=== PATIENT | female | born 1995 | race Caucasian/White ===

== ENCOUNTER → 2019-04-25 16:03 | Outpatient (CLI) | payer BC, OTHER, SELFPAY ==
[2019-04-11 14:59] VITALS: BMI 20.5
[2019-04-25 17:17] LABS: Estradiol 34.7 pg/mL; Follicle Stimulating Hormone 5.4 mIU/mL; Thyroid Stim Hormone (TSH) 3.22 uIU/mL (0.358-3.74)
== END ==
PROVIDERS: PCP Family Medicine; Referring Provider Obstetrics & Gynecology; Visit Provider Obstetrics & Gynecology
DX: Z31.9 Encounter for procreative management, unspecified (principal)
CPT/HCPCS: 36415; 82670; 83001; 84443

== ENCOUNTER → 2019-05-02 14:32 | Outpatient (CLI) | payer BC, OTHER, SELFPAY ==
[2019-04-11 14:59] VITALS: BMI 20.5
--- NOTE | 2019-05-02 14:32 | US_ITS ---
STUDY: ULTRASOUND OF THE FEMALE PELVIS - COMPLETE REASON FOR EXAM: Female, 23 years old. Infertility. LMP: April 23, 2019. TECHNIQUE: Transabdominal and Transvaginal TECHNICAL QUALITY: Adequate. COMPARISON: None. FINDINGS: The anteverted midline uterus measures 6.9 x 4.9 x 3.1 cm. There are no myometrial masses. Endometrium measures 3 mm in thickness and is hyperechoic. There are no endometrial masses, and there is no fluid in the endometrial cavity. Normal uterine cervix. Normal right ovary, measuring 4.3 x 2.4 x 3.0 cm. There are multiple follicles without a dominant cyst. Normal vascularity on Doppler imaging. Normal left ovary, measuring 2.5 x 3.0 x 1.2 cm. There are multiple follicles without a dominant cyst. Normal vascularity on Doppler imaging. There is no free fluid in the pelvis. Polycystic ovary disease: No. US/Pelvic (Non ) IMPRESSION: Normal female pelvis. Electronically Signed: Saúl Phillip DO at 17:18 EST Tel [phone], Service support ,
--- NOTE | 2019-05-02 14:32 | US_ITS ---
STUDY: ULTRASOUND OF THE FEMALE PELVIS - COMPLETE REASON FOR EXAM: Female, 23 years old. Infertility. LMP: April 23, 2019. TECHNIQUE: Transabdominal and Transvaginal TECHNICAL QUALITY: Adequate. COMPARISON: None. FINDINGS: The anteverted midline uterus measures 6.9 x 4.9 x 3.1 cm. There are no myometrial masses. Endometrium measures 3 mm in thickness and is hyperechoic. There are no endometrial masses, and there is no fluid in the endometrial cavity. Normal uterine cervix. Normal right ovary, measuring 4.3 x 2.4 x 3.0 cm. There are multiple follicles without a dominant cyst. Normal vascularity on Doppler imaging. Normal left ovary, measuring 2.5 x 3.0 x 1.2 cm. There are multiple follicles without a dominant cyst. Normal vascularity on Doppler imaging. There is no free fluid in the pelvis. Polycystic ovary disease: No. US/Transvaginal Non- IMPRESSION: Normal female pelvis. Electronically Signed: Saúl Phillip DO at 17:18 EST Tel [phone], Service support ,
== END ==
PROVIDERS: PCP Family Medicine; Referring Provider Obstetrics & Gynecology; Visit Provider Obstetrics & Gynecology
DX: N94.6 Dysmenorrhea, unspecified (principal); N97.9 Female infertility, unspecified
CPT/HCPCS: 76830; 76856

== ENCOUNTER → 2019-09-05 | Outpatient (CLI) | payer BC, OTHER, SELFPAY ==
[2019-09-05 13:54] VITALS: BMI 20.5
[2019-09-05 17:46] LABS: Amphetamine Urine VISTA NEGATIVE (<1000 ng/mL); Barbiturate Urine VISTA NEGATIVE (< 200 ng/mL); Benzodiazepine Urine VISTA NEGATIVE (< 200 ng/mL); Cocaine Urine VISTA NEGATIVE (< 300 ng/mL); Ecstacy Urine VISTA NEGATIVE (< 500 ng/mL); Methadone Urine VISTA NEGATIVE (< 300 ng/mL); PCP Urine VISTA NEGATIVE (< 25 ng/mL); THC Urine VISTA NEGATIVE (< 50 ng/mL); Vista UDS pH Range 6
[2019-09-05 20:06] LABS: Chlamydia Trachomatis by PCR Negative (Negative); Neisserai gonorrhoeae by PCR Negative (Negative); Probe Check PASS; Sample Adequacy Control PASS; Specimen Processing Control PASS
[2019-09-10 08:48] LABS: HPV Reflexed? NOT INDICATED
== END | disposition home or self-care (01) ==
PROVIDERS: PCP Family Medicine; Referring Provider Obstetrics & Gynecology; Visit Provider Obstetrics & Gynecology
DX: Z12.4 Encounter for screening for malignant neoplasm of cervix (principal); Z34.90 Encounter for supervision of normal pregnancy, unspecified, unspecified trimester
CPT/HCPCS: 80307; 87086; 87088; 87491; 87591; 88175; G0145

== ENCOUNTER → 2019-10-07 15:42 | Outpatient (CLI) | payer BC, OTHER, SELFPAY ==
[2019-10-07 14:53] VITALS: BMI 20.5
[2019-10-07 16:41] LABS: Absolute Lymphocyte Count 1.83 X10^3/uL (0.83-4.51); Absolute Neutrophil Count 7.7 X10^3/uL (2.0-7.7); Basophil# 0.02 X10^3/uL; Basophil% 0.2 % (0-1); Eosinophil# 0.12 X10^3/uL; Eosinophils% 1.1 % (0-5); Hematocrit 36.5 % (37-47); Hemoglobin 12.4 g/dL (12.0-15.0); Lymphocyte # 1.83 X10^3/ul (4.0); Lymphocyte % 17.5 % (19-41); Mean Corpuscular Hgb 31.4 pg (27.0-32.0); Mean Corpuscular Volume 92.4 fL (81-99); Mean Platelet Vol. 9.8 fl (6.2-12.0); Monocyte# 0.76 X10^3/uL; Monocyte% 7.3 % (0-10); NRBC Flagged by Analyzer 0 % (0-5); Neutrophil # 7.66 X10^3/uL (2.7-7.7); Neutrophil % 73.3 % (47-70); Platelet Count 297 K/mm3 (150-450); RBC Distribution Width CV 11.5 % (11.6-14.6); RBC Distribution Width SD 38.9 fl (35.1-43.9); Red Blood Count 3.95 M/mm3 (4.2-5.4); White Blood Count 10.5 K/mm3 (4.4-11.0)
[2019-10-10 11:04] LABS: HIV - WCH Non-Reactive (Nonreactive); Hepatitis B Surface Antigen Non-Reactive (Nonreactive); Hepatitis C Antibody Non-Reactive (Nonreactive); Rubella IgG 137.9 IU/mL
[2019-10-13 11:06] LABS: Rapid Plasmin Reagin (RPR) NONREACTIVE (NONREACTIVE)
== END ==
PROVIDERS: PCP Family Medicine; Referring Provider Obstetrics & Gynecology; Visit Provider Obstetrics & Gynecology
DX: Z34.90 Encounter for supervision of normal pregnancy, unspecified, unspecified trimester (principal)
CPT/HCPCS: 36415; 85025; 86592; 86703; 86762; 86803; 86850; 86900; 86901; 87340

== ENCOUNTER → 2019-12-30 15:17 | Outpatient (CLI) | payer BC, OTHER, SELFPAY ==
[2019-12-02 15:42] VITALS: BMI 20.5
[2019-12-30 17:27] LABS: Absolute Lymphocyte Count 1.54 X10^3/uL (0.83-4.51); Absolute Neutrophil Count 9.6 X10^3/uL (2.0-7.7); Basophil# 0.03 X10^3/uL; Basophil% 0.2 % (0-1); Eosinophil# 0.12 X10^3/uL; Hemoglobin 10.9 g/dL (12.0-15.0); Lymphocyte # 1.54 X10^3/ul (4.0); Lymphocyte % 12.4 % (19-41); Mean Corp Hgb Conc 32.1 g/dL (32-36); Mean Corpuscular Hgb 31.3 pg (27.0-32.0); Mean Corpuscular Volume 97.7 fL (81-99); Mean Platelet Vol. 9.8 fl (6.2-12.0); Monocyte# 1.12 X10^3/uL; NRBC Flagged by Analyzer 0 % (0-5); Platelet Count 275 K/mm3 (150-450); RBC Distribution Width CV 12.4 % (11.6-14.6); RBC Distribution Width SD 44.3 fl (35.1-43.9); Red Blood Count 3.48 M/mm3 (4.2-5.4); White Blood Count 12.5 K/mm3 (4.4-11.0)
[2019-12-30 18:13] LABS: Glucose Challenge Gest 1H 50g 69 mg/dL (70-140)
== END ==
PROVIDERS: PCP Family Medicine; Referring Provider Obstetrics & Gynecology; Visit Provider Obstetrics & Gynecology
DX: Z34.90 Encounter for supervision of normal pregnancy, unspecified, unspecified trimester (principal)
CPT/HCPCS: 36415; 82950; 85025

== ENCOUNTER → 2020-02-15 17:32 | Outpatient (CLI) | payer BC, OTHER, SELFPAY ==
[2020-02-10 15:45] VITALS: BMI 24.4
== END ==
PROVIDERS: PCP Family Medicine; Referring Provider Obstetrics & Gynecology; Visit Provider Obstetrics & Gynecology
DX: Z20.828 Contact with and (suspected) exposure to other viral communicable diseases (principal)
CPT/HCPCS: 87635; C9803; U0003

== ENCOUNTER → 2020-03-09 | Outpatient (CLI) | payer BC, OTHER, SELFPAY ==
[2020-03-09 15:57] VITALS: BMI 25.1
== END | disposition home or self-care (01) ==
LOC: LABSPEC 17:03
PROVIDERS: PCP Family Medicine; Referring Provider Obstetrics & Gynecology; Visit Provider Obstetrics & Gynecology
DX: Z34.90 Encounter for supervision of normal pregnancy, unspecified, unspecified trimester (principal)
CPT/HCPCS: 87077; 87081; 87186

== ENCOUNTER → 2020-03-16 13:44 | Outpatient (CLI) | payer BC, OTHER, SELFPAY ==
[2020-03-09 15:57] VITALS: BMI 25.1
--- NOTE | 2020-03-16 13:48 | US_ITS ---
STUDY: SECOND AND THIRD TRIMESTER OBSTETRICAL ULTRASOUND - LIMITED REASON FOR EXAM: Female, 24 years old GROWTH, UTERINE SIZE DATE DISCREPANCY LMP: PRIOR ULTRASOUND: None. TECHNIQUE: Transabdominal TECHNICAL QUALITY: Adequate. FINDINGS: There is a single intrauterine fetus. The fetus is in a cephalic presentation. There is demonstrated cardiac activity with a heart rate of 166 bpm. There is a normal amniotic fluid volume. The largest amniotic fluid pocket measures 2.55 cm. The amniotic fluid index (VNACE) is 9.45 cm. The placenta is anterior in location and is not low lying. There are Grade 2 placental changes. BIOMETRY: BPD: 8.7 cm: 35 weeks, 0 days HC: 31.5 cm: 35 weeks, 2 days AC: 30.8 cm: 34 weeks, 5 days FL: 7.25 cm: 37 weeks, 0 days Age by LMP: 37 weeks, 4 days. SORAYA by LMP: 04/02/2020. age by current US: 35 weeks, 2 days. SORAYA by current US: 04/18/2020. Estimated weight: 2725 grams, +/- 409 grams, 16 percentile. US/OB Limited With Biometrics IMPRESSION: Single live intrauterine gestation with a mean gestational age of 35 weeks and 2 days. Electronically Signed: Home Womack, at 15:22 EST , Service support ,
== END ==
PROVIDERS: PCP Family Medicine; Visit Provider Obstetrics & Gynecology
DX: O26.843 Uterine size-date discrepancy, third trimester (principal)
CPT/HCPCS: 76816

== ENCOUNTER 2020-03-26 15:50 | Outpatient (CLI) | payer BC, OTHER, SELFPAY ==
[2020-03-26] VITALS (7 sets, daily range): BP systolic 111–133; BP diastolic 73–84; PULSE 75–92; TEMP 37.2; O2SAT 98; BMI 25.5; BMI 25.6
--- NOTE | 2020-03-26 16:07 | EKG12_ITS ---
Test Reason : Blood Pressure : / mmHG Vent. Rate : 095 BPM Atrial Rate : 095 BPM P-R Int : 106 ms QRS Dur : 084 ms QT Int : 370 ms P-R-T Axes : 061 032 047 degrees QTc Int : 464 ms Sinus rhythm with short MN Otherwise normal ECG No previous ECGs available Confirmed by REID VALENTINO, ROSEANNE ([id number]), movie editor YARITZA RAZO ([id number]) on 04/02/2020 12:55:09 PM Referred By: Ivett Reid Confirmed By:STUART MATHEWS MD
[2020-03-26 16:30] LABS: Hematocrit 38.7 % (37-47); Hemoglobin 13.5 g/dL (12.0-15.0); Mean Corp Hgb Conc 34.9 g/dL (32-36); Mean Corpuscular Hgb 32.4 pg (27.0-32.0); Mean Corpuscular Volume 92.8 fL (81-99); Mean Platelet Vol. 9.9 fl (6.2-12.0); Platelet Count 312 K/mm3 (150-450); RBC Distribution Width SD 44.1 fl (35.1-43.9); Red Blood Count 4.17 M/mm3 (4.2-5.4); White Blood Count 13.9 K/mm3 (4.4-11.0)
[2020-03-26 16:38] LABS: AST(SGOT) 17 U/L (15-37); Alanine Aminotransfer ALT/SGPT 17 U/L (13-56); Creatinine, Serum 0.64 mg/dL (0.55-1.02); EST Glomerular Filtration Rate 122 mL/min (>60); Est Glom Filt Rate - Afr Amer 148 mL/min (>60); Uric Acid 3.7 mg/dL (2.6-6.0)
[2020-03-26] MEDS: Acetaminophen 500 MG Tablet 1000 MG PO (16:38)
[2020-03-26 16:39] LABS: Protein:Creat Ratio 132 mg/g CRE (0-200)
[2020-03-26 16:45] LABS: Partial Thromboplast Time 25.1 Seconds (24.1-36.2); Prothrombin Time (Protime)PT. 12.5 SECONDS (11.7-14.9)
--- NOTE | 2020-03-27 11:54 | OB.TRI.PN_ITS ---
Progress Notes Date of Service: 03/26/20 Progress Note: Patient presents for triage evaluation secondary to elevated blood pressure at home and chest tightness intermittent and history of SVT FHT: 130 Moderate variability reactive no decelerations category I tracing [place]: No regular contractions Assessment and plan: Normal blood pressures and negative preeclampsia evaluation transient hypertension of EKG within normal limits reactive NST, reassuring maternal and status patient discharged to home to follow-up as scheduled in office. See problem list details for additional plan information. Laboratory Studies: Laboratory Tests 03/26/20 03/26/20 03/26/20 Range/Units 16:10 16:10 16:10 WBC 13.9 H (4.4-11.0) K/mm3 RBC 4.17 L (4.2-5.4) M/mm3 Hgb 13.5 (12.0-15.0) g/dL Hct 38.7 (37-47) % MCV 92.8 (81-99) fL MCH 32.4 H (27.0-32.0) pg MCHC 34.9 (32-36) g/dL RDW Std Deviation 44.1 H (35.1-43.9) fl RDW Coeff of Kranthi 13.0 (11.6-14.6) % Plt Count 312 (150-450) K/mm3 MPV 9.9 (6.2-12.0) fl PT 12.5 (11.7-14.9) SECONDS INR 1.0 APTT 25.1 (24.1-36.2) Seconds Creatinine 0.64 (0.55-1.02) mg/dL Estim Creat Clear Calc 152.80 ml/min Est GFR (MDRD) Af Amer 148 (>60) mL/min Est GFR (MDRD) Non-Af 122 (>60) mL/min Uric Acid 3.7 (2.6-6.0) mg/dL AST 17 (15-37) U/L ALT 17 (13-56) U/L U Random Total Protein (<11.9) mg/dL Urine Creatinine (NO RANGE EST.) mg/dL Protein/Creatinin Ratio (0-200) mg/g CRE 03/26/20 Range/Units 16:00 WBC (4.4-11.0) K/mm3 RBC (4.2-5.4) M/mm3 Hgb (12.0-15.0) g/dL Hct (37-47) % MCV (81-99) fL MCH (27.0-32.0) pg MCHC (32-36) g/dL RDW Std Deviation (35.1-43.9) fl RDW Coeff of Kranthi (11.6-14.6) % Plt Count (150-450) K/mm3 MPV (6.2-12.0) fl PT (11.7-14.9) SECONDS INR APTT (24.1-36.2) Seconds Creatinine (0.55-1.02) mg/dL Estim Creat Clear Calc ml/min Est GFR (MDRD) Af Amer (>60) mL/min Est GFR (MDRD) Non-Af (>60) mL/min Uric Acid (2.6-6.0) mg/dL AST (15-37) U/L ALT (13-56) U/L U Random Total Protein 10.0 (<11.9) mg/dL Urine Creatinine 75.90 (NO RANGE EST.) mg/dL Protein/Creatinin Ratio 132 (0-200) mg/g CRE - Problem List (1) Transient hypertension of in third trimester Status: Acute Multi Select Codes - Urinary/Genital Urinary/Genital CPT Codes: 55111-91 non-stress test Interp
== END 2020-03-26 17:40 | disposition home or self-care (01) ==
LOC: WPOUT 15:58 → WP 15:58
PROVIDERS: PCP Family Medicine; Referring Provider Obstetrics & Gynecology; Visit Provider Obstetrics & Gynecology
DX: O26.893 Other specified pregnancy related conditions, third trimester (principal); R03.0 Elevated blood-pressure reading, without diagnosis of hypertension; R07.89 Other chest pain
CPT/HCPCS: 36415; 59025; 59050; 82565; 82570; 84156; 84450; 84460; 84550; 85027; 85610; 85730; 93005; 99218; G0378

== ENCOUNTER 2020-03-28 05:37 | Inpatient (IN) | payer BC, OTHER, SELFPAY ==
[2020-03-26 16:05] VITALS: BMI 25.6
[2020-03-28] VITALS (50 sets, daily range): BP systolic 92–137; BP diastolic 53–88; PULSE 75–114; RESP 16–18; TEMP 35.8–36.9; O2SAT 85–100; BMI 25.7
[2020-03-28] MEDS: Lactated Ringers 1,000 ML 200 ML IV ×2 (05:40→11:03)
[2020-03-28 06:02] LABS: Absolute Lymphocyte Count 1.92 X10^3/uL (0.83-4.51); Absolute Neutrophil Count 11.9 X10^3/uL (2.0-7.7); Basophil# 0.04 X10^3/uL; Basophil% 0.3 % (0-1); Eosinophil# 0.15 X10^3/uL; Hematocrit 38.1 % (37-47); Hemoglobin 13.1 g/dL (12.0-15.0); Lymphocyte # 1.92 X10^3/ul (4.0); Lymphocyte % 12.5 % (19-41); Mean Corp Hgb Conc 34.4 g/dL (32-36); Mean Corpuscular Hgb 31.7 pg (27.0-32.0); Mean Corpuscular Volume 92.3 fL (81-99); Mean Platelet Vol. 9.9 fl (6.2-12.0); Monocyte# 1.26 X10^3/uL; Monocyte% 8.2 % (0-10); NRBC Flagged by Analyzer 0 % (0-5); Neutrophil # 11.87 X10^3/uL (2.7-7.7); Neutrophil % 77.4 % (47-70); Platelet Count 293 K/mm3 (150-450); RBC Distribution Width CV 12.7 % (11.6-14.6); RBC Distribution Width SD 43.3 fl (35.1-43.9); Red Blood Count 4.13 M/mm3 (4.2-5.4); White Blood Count 15.3 K/mm3 (4.4-11.0)
[2020-03-28] MEDS: Lactated Ringers 500 ML 999 ML IV (06:10)
--- NOTE | 2020-03-28 06:34 | PCM.HPOB.BLA ---
- Problem List (1) Active labor at term Status: Acute (2) 37 weeks gestation of Status: Acute Comment: electronic covid test ordered 03/16/20 (scheduled for 03/30/20 at 1630) (3) Anemia affecting Status: Acute Qualifiers: Comment: iron added. (4) History of tetanus, diphtheria, and acellular pertussis booster vaccination (Tdap) Status: Acute Comment: 01/25/20 (5) Influenza vaccine administered Status: Acute Comment: 11/04/2019sc (6) Lab test negative for COVID-19 virus Status: Acute Comment: 02/20/2020 (7) Positive GBS test Status: Acute Comment: PCN in labor (8) Status: Acute Qualifiers: Comment: nipt, ntd, and carrier screening discussed. Normal anatomy (9) Supervision of normal Status: Acute Qualifiers: Comment: PRR SORAYA 04/02/20 Girl - Naz, Enzo (10) Transient hypertension of in third trimester Status: Acute History and Physical Date of Admission: 03/28/20 Intake Vital Signs 03/26/20 Height 5 ft 11 in 03/26/20 Weight: 183 lb 6 oz 03/26/20 BP 122/92 H Intake Visit Reasons: chest tightness/BP Custodian Blood Bank Required: No Is patient in pain?: No Allergies No Known Allergies Allergy (Verified 03/26/20 15:28) Medications ondansetron HCl 4 mg tablet 4 mg PO Q8H PRN #90 tab 08/22/19 [Rx Confirmed 03/26/20] multivitamin no.47-iron fum 27 mg-folate no.1 1 mg-dha 300 mg capsule cap PO 09/05/19 [History Confirmed 03/26/20] Last Menstral Period: 06/27/19 Zika: Zika virus screening: Negative : No PFSH PFSH Medical History SVT (supraventricular tachycardia) (Acute) Surgical History Hx of heart surgery (Acute) Family History Grandfather CVA (cerebral vascular accident) Hypertension Grandmother Diabetes Skin cancer Social History (Updated 03/26/20 @ 15:[address] 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 She has had an uncomplicated D&C and denies any vaginal bleeding or loss of fluid admits good movement. She is GBS positive. OB Visit SORAYA Calculator Estimated Delivery Date Method Current WG Current Estimate 04/02/20 LMP (Certain) 39w 0d Other Estimates 04/07/20 Ultrasound #1 38w 2d Expected Delivery Route/Plan Labor Preferences- labor support person: Enzo pain management options preferred: epidural cut cord/dad catch: no : pump and feed PP control planned: [] discussed possible routes of delivery and associated risks: discussed possible delivery modalities and possible indications for each including R/B/A of , VAVD, and CS. questions answered. special requests: [] Specific Issue/Plans flu vaccine: given tdap vaccine: given rhogam: na LARC form signed: yes movement and labor precautions reviewed. Problem list reviewed and updated with the most current plan of care details and appropriate orders placed. Relevant counseling for the gestational age provided. Continue routine care and follow up unless otherwise noted in visit notes/problem list details Initial Weight: 151 lb Date EGA Weight BP Urine Prot Glucose FHR FuHt Pres Dilation Effaced St Visit Note 09/05/19 10w 0d 151 lb 8 oz (+8 oz) 106/60 175 CRL 2.2 cm cons with LMP 9w2d 10/07/19 14w 4d 151 lb 6 oz (+6 oz) 120/76 Negative Negative 160 SM- no vb cramping doing well nausea improved nob labs drawn today 11/04/19 18w 4d 155 lb (+4 lb) 122/78 Negative Negative 150 SM- no vb cramping schedule anatomy scan. 12/02/19 22w 4d 160 lb 4 oz (+9 lb 4 oz) 120/70 Negative Negative 150 GP -no LOF, VB, cramping. +FM. Reports anatomy normal, but awaiting results. 12/30/19 26w 4d 167 lb (+16 lb) 110/76 Negative Negative 140 26 SM- no vb lof good fm no regular ctx cbc gct tdap 01/25/20 30w 2d 169 lb 8 oz (+18 lb 8 oz) 110/70 Negative Negative 156 29 MH-No Vb, LOF. Good FM. Larc, tdap 02/10/20 32w 4d 175 lb 4 oz (+24 lb 4 oz) 130/82 Negative Negative 150 32 GP - no LOF, VB, DFM, ctx. Denies complaints. 02/22/20 34w 2d 178 lb (+27 lb) 100/72 Negative Negative 140 34 Sm- no vb lof good fm no regular ctx. 03/09/20 36w 4d 180 lb (+29 lb) 110/82 Negative Negative 145 34 Cephalic 0.5 SM- no vb lof good fm no regular ctx get growth us for fh not consistent 03/16/20 37w 4d 184 lb (+33 lb) 130/88 Negative Negative 140 37 Cephalic Sm- no vb lof good fm no regular ctx 03/23/20 38w 4d 185 lb 4 oz (+34 lb 4 oz) 114/82 Negative Negative 140 38 Cephalic 2 70 -2 GP - no LOF, VB, DFM, ctx. Membranes swept today. 03/26/20 39w 0d 183 lb 6 oz (+32 lb 6 oz) 122/92 Negative Negative 140 GP - no LOF, VB, DFM, ctx. Having chest tightness and headache. BP mild range at work and in office. Sent to triage for BP monitoring, labs, and EKG. ACOG First Trimester First Trimester: Discussed Second Trimester Second Trimester: Signs and Symptoms of Labor, Selecting a care provider, Reproductive Life Planning, Care Planning, Depression/Anxiety and Intimate Partner Violence; discussed Tobacco Cessation Diagnostics Diagnostics Diagnostics Blood Type O POSITIVE 10/07/19 Antibody Screen NEGATIVE 10/07/19 Glucose 1 Hr 50 gm 69 mg/dL (70-140) L 12/30/19 HIV 1&2 Antibody Non-Reactive (Nonreactive) 10/07/19 Rubella IgG Antibody 137.9 IU/mL 10/07/19 Hgb 10.9 g/dL (12.0-15.0) L 12/30/19 Hct 34.0 % (37-47) L 12/30/19 RPR NONREACTIVE (NONREACTIVE) 10/07/19 Details: HIV: Urine Culture: Sequential Screen: NIPT Screen: ROS Const Reports system reviewed and no additional complaints, except as docu, Reports headache(s) Eyes Reports system reviewed and no additional complaints, except as docu ENT Reports system reviewed and no additional complaints, except as docu and headache(s) Card Reports system reviewed and no additional complaints, except as docu, Reports chest pain, Reports shortness of breath Resp Reports system reviewed and no additional complaints, except as docu, Reports shortness of breath GI Reports system reviewed and no additional complaints, except as docu Reports system reviewed and no additional complaints, except as docu, Denies abnormal vaginal bleeding, Denies painful urination, Denies pelvic pain, Denies vaginal discharge, Denies vaginal odor, Denies vaginal itching Musc Reports system reviewed and no additional complaints, except as docu Skin/Breast Reports system reviewed and no additional complaints, except as docu Neuro Yes system reviewed and no additional complaints, except as docu, Yes headache(s) Psych Reports system reviewed and no additional complaints, except as docu Endo Reports system reviewed and no additional complaints, except as docu Exam Const General: cooperative, healthy appearing, comfortable, no acute distress, well developed, well groomed Nutritional Appearance: average body habitus, well nourished Orientation: alert, awake, oriented x3 [facility] Head: normal to inspection, normocephalic, atraumatic Eyes Pupils: PERRL, accommodation normal Resp Effort & Inspection: normal respiratory effort, able to speak in complete sentences, symmetric chest movement Cardio Rate: regular rate GI Palpation: soft, no guarding, no masses, nontender Skin General: no rashes or lesions noted, elasticity normal, turgor normal Neuro General: alert, awake, oriented x3 Cranial Nerves: CN's II-XI intact bilaterally, sense of smell intact, PERRL, accommodation normal, EOM intact bilaterally Speech: speech normal Gait: normal gait Psych Appearance: grossly normal, well kempt Mental Status: mental status grossly normal Mood: congruent mood Affect: normal affect Speech and Movement: speech and movement normal Attitude: cooperative Thought Process: normal Thought Content: normal Judgment: judgment good Results POC Urinalysis 2 Dip (Clinic) Office Urine Glucose Negative Last Edit by Destiny Jensen on 03/26/20 15:41 Office Urine Protein Negative Last Edit by Destiny Jensen on 03/26/20 15:41 Assessment & Plan Problems 1. 37 weeks gestation of Z3A.37 electronic covid test ordered 03/16/20 (scheduled for 03/30/20 at 1630) 2. Positive GBS test B95.1 PCN in labor 3. Lab test negative for COVID-19 virus Z03.818 02/20/2020 4. History of tetanus, diphtheria, and acellular pertussis booster vaccination (Tdap) Z92.29 01/25/20 5. Anemia affecting O99.019 iron added. 6. Influenza vaccine administered Z23 11/04/2019sc 7. Encounter for supervision of normal first in third trimester Z34.03 PRR SORAYA 04/02/20 Girl - Naz, Enzo 8. 39 weeks gestation of Z3A.39 nipt, ntd, and carrier screening discussed. Normal anatomy Orders Orders: POC Urinalysis 2 Dip (Clinic) Today Protein+Creatinine Ratio,Urine Today O16.3 24-year-old G1, P0 at 39 weeks presents in active labor 5 cm dilated Patient presents IAL, plan expectant management for , [pitocin/AROM if needed]. Pain management: [plans epidural]. GBS [positive plan IV PCN]. Management of any complications: [none] I have reviewed the [facility] and made any clinically relevant updates. Coding Level of Care Code OB Routine Diagnoses 37 weeks gestation of Z3A.37 Positive GBS test B95.1 Lab test negative for COVID-19 virus Z03.818 History of tetanus, diphtheria, and acellular pertussis booster vaccination (Tdap) Z92.29 Anemia affecting O99.019 Influenza vaccine administered Z23 Encounter for supervision of normal first in third trimester Z34.03 ??Normal : normal first ??Trimester: third trimester 39 weeks gestation of Z3A.39 ??Weeks of gestation: 39 weeks UPDATE- I have seen the patient and performed any clinically relevant updates to the history and physical exam. Ivett Reid MD
[2020-03-28] MEDS: fentaNYL-bupivacaine (epidural) 100 ML BAG EPIDURAL ×2 (08:03→12:11)
[2020-03-28] MEDS: Oxytocin 30 units/NS 500 ml 30 UNITS/500 ML IV.SOLN IV (11:20)
[2020-03-28] MEDS: Ondansetron 4 MG/2 ML Vial IV (12:11)
[2020-03-28] MEDS: Oxytocin 30 units/NS 500 ml 30 UNITS/500 ML IV.SOLN 334 UNITS IV (15:30)
--- NOTE | 2020-03-28 16:42 | PCM.OPRPT ---
Problem List (1) Transient hypertension of in third trimester Status: Acute (2) Active labor at term Status: Acute (3) 37 weeks gestation of Status: Acute Comment: electronic covid test ordered 03/16/20 (scheduled for 03/30/20 at 1630) (4) Positive GBS test Status: Acute Comment: PCN in labor (5) Lab test negative for COVID-19 virus Status: Acute Comment: 02/20/2020 (6) History of tetanus, diphtheria, and acellular pertussis booster vaccination (Tdap) Status: Acute Comment: 01/25/20 (7) Anemia affecting Status: Acute Qualifiers: Comment: iron added. (8) Influenza vaccine administered Status: Acute Comment: 11/04/2019sc (9) Supervision of normal Status: Acute Qualifiers: Comment: PRR SORAYA 04/02/20 Girl - Naz, Enzo (10) Status: Acute Qualifiers: Comment: nipt, ntd, and carrier screening discussed. Normal anatomy Vaginal Delivery Maternal Presentation: Active Labor 24yo at 39 weeks admitted in active labor. Patient was augmented with pitocin and AROM. Made cervical change to complete dilation after 4 hours on pitocin. Pushed for less than 30 minutes when the head began to crown. Method of Induction: Pitocin, Amniotomy Amniotic Membrane Rupture Type: Artificial Amniotic Fluid Description: Clear Final SORAYA: 04/02/20 Gestational age: 39 Weeks and 2 Days Date of Procedure: 03/28/20 Pre-Operative Diagnosis: Term , active labor Post-Operative Diagnosis: Same Surgery/ Procedure Performed: Spontaneous Vaginal Delivery Type of Anesthesia: Epidural Description of Procedure: Patient began pushing and delivered the head in the NAEL presentation. The head was delivered atraumatically and a loose nuchal cord ?1 was identified and easily reduced over the 's head. The anterior and posterior shoulders delivered without complication followed by the rest of the and the infant was placed on the maternal abdomen. Delayed cord clamping was employed for approximately 60 seconds. Cord was clamped and cut and gentle traction was applied to the cord and the placenta delivered spontaneously immediately following it was noted to be intact with three-vessel cord. The perineum and vagina were inspected and a first-degree perineal laceration and a right labial laceration were noted and repaired in the standard fashion using 3-0 Vicryl Rapide suture. EBL was 200 cc. Patient and infant tolerated delivery well. Presentation: Vertex, NAEL Placental Delivery Description: Spontaneous Placenta Disposition: [facility] Cord Vessel Description: 3 Vessels Nuchal Cord Compression: Without compression Cord Entanglement: Around neck x 1, loose Estimated Blood Loss: 200 ml A gender: Female Episiotomy Description: None Laceration: Midline, 1st degree - and right labial Medications given after delivery: IV Pitocin Complications: None Multi Select Codes - Urinary/Genital Urinary/Genital CPT Codes: 07988 Vaginal Delivery [facility]
--- NOTE | 2020-03-28 16:54 | DCINST_ITS ---
Discharge Diet: No Restrictions Discharge Activity: Return to Normal Activity, May not drive while taking narcotic pain medications., May Shower May resume sexual activity in: 4-6 weeks Additional Activity Instructions:: Nothing in the vagina for 4-6 weeks. You may return to work/school in 6 weeks. Call your doctor if your incision/area has: Continuous Slow Oozing, Sudden Increased Bleeding, Increased Pain/ Swelling, Increased Redness, Foul Smelling Discharge Additional Instructions: If you experience any of the following, contact your healthcare provider. * Bleeding that soaks a pad every hour for 2 hours * Fever 100.4 or higher * Unrelieved incision or abdominal pain * Swelling, redness, discharge or bleeding from your incision or episiotomy site * Your incision begins to separate * Problems urinating (including inability to urinate or burning while urinating). * Visual changes * Severe headache * Flu-like symptoms * Pain or redness in one of both of your breasts * Pain, warmth, tenderness or swelling in your legs, especially the calf area * Frequent nausea and vomiting * Symptoms of depression or anxiety If you experience any of the following, call 911 or go to the nearest Emergency Room. * Chest pain * Problems breathing * Seizure activity * Partial or complete paralysis of a body part, slurred speech, weakness or drooping of the face, or a sudden inability to walk or hold your balance Allergies/Adverse Reactions: Allergies No Known Allergies Allergy (Verified 03/28/20 05:33) Medications to take at Discharge multivitamin no.47-iron fum 27 mg-folate no.1 1 mg-dha 300 mg capsule 1 cap PO DAILY 09/05/19 When: Call to make an appointment with your doctor in 6 weeks. If you had elevated Blood Pressure or 4th degree laceration you will need to be seen in 2 weeks. Primary Care Physician: Rossana Myers MD [Primary Care Provider] - Test Results: Test results from this visit will be discussed in further detail at your follow- up appointment, if applicable.
--- NOTE | 2020-03-28 17:21 | NURSING ---
edited to shows patients true intentions
[2020-03-28] MEDS: 0.9% Saline Lock 10 ML Syringe IV (18:34)
--- NOTE | 2020-03-28 20:47 | NURSING ---
Patient unable to lift legs off the bed. Able to wiggle toes. Straight cath 400 mL of clear yellow urine out. Patient reports feeling some sensation with straight catheter procedure.
[2020-03-29 00:14] VITALS: BP 125/80; PULSE 82; RESP 18; TEMP 36.2
[2020-03-29 04:48] VITALS: BP 120/86; PULSE 82; RESP 16; TEMP 36.2
[2020-03-29] MEDS: Naproxen 250 MG Tablet 500 MG PO ×2 (04:51→16:28)
--- NOTE | 2020-03-29 08:20 | PCM.PN.OB ---
Patient Problems: Active and Suspected Problems (Last Reviewed 03/26/20 @ 15:28 by Destiny Jensen) Transient hypertension of in third trimester (Acute) Active labor at term (Acute) 37 weeks gestation of (Acute) electronic covid test ordered 03/16/20 (scheduled for 03/30/20 at 1630) Positive GBS test (Acute) PCN in labor Lab test negative for COVID-19 virus (Acute) 02/20/2020 History of tetanus, diphtheria, and acellular pertussis booster vaccination (Tdap) (Acute) 01/25/20 Anemia affecting (Acute) iron added. Influenza vaccine administered (Acute) 11/04/2019sc Supervision of normal (Acute) PRR SORAYA 04/02/20 Girl - Naz, Enzo (Acute) nipt, ntd, and carrier screening discussed. Normal anatomy Subjective: Patient doing well without complaints. Tolerating PO. Ambulating and voiding without difficulty. Breast feeding well. Denies chest pain, shortness of breath, calf pain/swelling, fevers, chills, lightheadedness. - Physical Exam Vitals/I&O's: Vital Signs Temp Pulse Resp BP Pulse Ox 97.1 F L 82 16 120/86 H 97 03/29/20 04:48 03/29/20 04:48 03/29/20 04:48 03/29/20 04:48 03/28/20 20:26 Oxygen Delivery Method Room Air Weight: 184 lb 9.6 oz Body Mass Index (BMI) 25.7 Intake and Output for Last 24 Hours 03/27/20 03/28/20 03/29/20 23:59 23:59 23:59 Intake Total 3196.66 / 3196.66 Output Total 1600 / 1600 200 / 200 Balance 1596.66 / 1596.66 -200 / -200 General: Alert, Oriented x3, Cooperative, No apparent distress, Well developed, Well nourished HEENT: Atraumatic, PERRLA, EOMI, Normocephalic Neck: Supple, No JVD Lungs: Normal air movement Cardiovascular: Regular rate Abdomen: Soft, Non Tender, Non-Distended, - - fundus firm Extremities: No edema, No Calf Tenderness Neurological: Cranial nerves II-XII grossly intact, Neuro grossly intact Psych/Mental Status: Normal Affect, Appropriate Microbiology Past 72 Hours 03/28/20 06:20 Mucosa - Nose SARS-CoV-2 Antigen (Rapid) - Final Current Medications Acetaminophen (Acetaminophen 500 Mg Tablet) 1,000 mg PO Q8H PRN PRN PRN Reason: Pain Score 1-3 Bisacodyl (Bisacodyl 10 Mg Suppository) 10 mg RECTAL UD PRN PRN Reason: If no BM Dibucaine (Dibucaine 30 Gm Tube) 1 applic TOPICAL TID PRN PRN; Protocol PRN Reason: Discomfort Hydrocortisone (Hydrocortisone 2.5% Crm) 1 applic TOPICAL TID PRN PRN; Protocol PRN Reason: Discomfort Methylergonovine Maleate (Methylergonovine 0.2 Mg/Ml Ampul) 0.2 mg IM X1 PRN PRN Reason: Excess bleeding/uterine atony Naproxen (Naproxen 250 Mg Tablet) 500 mg PO Q8H PRN PRN PRN Reason: Pain Score 1-3 Last Admin: 03/29/20 04:51 Dose: 500 mg Documented by: Ondansetron HCl (Ondansetron 4 Mg/2 Ml Vial) 4 mg IV Q4H PRN PRN PRN Reason: Nausea Oxycodone HCl (Oxycodone 5 Mg Tablet) 5 - 10 mg PO Q4H PRN PRN PRN Reason: Pain Score 4-10 Senna/Docusate Sodium (Senna/Docusate Sodium 1 Tablet) 1 - 2 tablet PO DAILY PRN PRN PRN Reason: Constipation Simethicone (Simethicone 80 Mg Tablet) 80 mg PO PCHS PRN PRN Reason: Indigestion/Stomach pain Sodium Chloride (0.9% Saline Lock 10 Ml Syringe) 5 - 15 ml IV UD PRN PRN Reason: SALINE FLUSH Last Admin: 03/28/20 18:34 Dose: 10 ml Documented by: Medical Necessity - Tobacco Use Smoking Status: Never smoker Assessment/Plan All Active Problems (Last Reviewed 03/26/20 @ 15:28 by Destiny Jensen) Transient hypertension of in third trimester (Acute) Active labor at term (Acute) 37 weeks gestation of (Acute) Positive GBS test (Acute) Lab test negative for COVID-19 virus (Acute) History of tetanus, diphtheria, and acellular pertussis booster vaccination (Tdap) (Acute) Anemia affecting (Acute) Influenza vaccine administered (Acute) Supervision of normal (Acute) (Acute) Dysmenorrhea (Resolved) Infertility (Resolved) Uterine size-date discrepancy, third trimester (Resolved) s/p PPD # 1 1. routine post delivery care 2. breast feeding- support given 3. rh positive 4. rubella immune
[2020-03-29 08:32] VITALS: BP 101/66; PULSE 75; RESP 18; TEMP 36.2; O2SAT 98
[2020-03-29 12:35] VITALS: BP 123/72; PULSE 74; RESP 16; TEMP 36.4; O2SAT 97
[2020-03-29] MEDS: Acetaminophen 500 MG Tablet 1000 MG PO (12:35)
[2020-03-29 16:22] VITALS: BP 109/73; PULSE 84; RESP 16; TEMP 36.2; O2SAT 97
== END 2020-03-29 18:40 | disposition home or self-care (01) | DRG 807 ==
LOC: WPOUT 05:38 → WP 05:38
PROVIDERS: Obstetrics & Gynecology; Admitting Provider Obstetrics & Gynecology; PCP Family Medicine; Visit Provider Obstetrics & Gynecology
DX: O13.4 Gestational [pregnancy-induced] hypertension without significant proteinuria, complicating childbirth (principal); O99.824 Streptococcus B carrier state complicating childbirth; O69.81X0 Labor and delivery complicated by cord around neck, without compression, not applicable or unspecified; O70.0 First degree perineal laceration during delivery; O99.02 Anemia complicating childbirth; D64.9 Anemia, unspecified; Z79.899 Other long term (current) drug therapy; Z3A.39 39 weeks gestation of pregnancy; Z37.0 Single live birth
CPT/HCPCS: 59025; 59050; 85025; 86850; 86900; 86901; 87426; 99218; J7120; A4216; G0378; J2405

== ENCOUNTER → 2020-09-15 10:49 | Outpatient (CLI) | payer BC, SELFPAY ==
[2020-05-09 10:03] VITALS: BMI 21.7
[2020-09-15 11:42] LABS: hCG Titer Quant., Serum 34 mIU/mL (1-3)
== END ==
PROVIDERS: PCP Family Medicine; Referring Provider Obstetrics & Gynecology; Visit Provider Obstetrics & Gynecology
DX: N91.2 Amenorrhea, unspecified (principal)
CPT/HCPCS: 36415; 84702

== ENCOUNTER → 2020-09-17 13:15 | Outpatient (CLI) | payer BC, SELFPAY ==
[2020-05-09 10:03] VITALS: BMI 21.7
[2020-09-17 14:15] LABS: hCG Titer Quant., Serum 68 mIU/mL (1-3)
== END ==
PROVIDERS: PCP Family Medicine; Referring Provider Obstetrics & Gynecology; Visit Provider Obstetrics & Gynecology
DX: N91.2 Amenorrhea, unspecified (principal)
CPT/HCPCS: 36415; 84702

== ENCOUNTER → 2020-10-25 14:44 | Outpatient (CLI) | payer BC, SELFPAY ==
[2020-10-25 15:01] LABS: Absolute Lymphocyte Count 2.11 X10^3/uL (0.83-4.51); Absolute Neutrophil Count 7.4 X10^3/uL (2.0-7.7); Basophil# 0.04 X10^3/uL; Basophil% 0.4 % (0-1); Hematocrit 36.8 % (37-47); Hemoglobin 12.2 g/dL (12.0-15.0); Lymphocyte # 2.11 X10^3/ul (0.83-4.51); Lymphocyte % 20.2 % (19-41); Mean Corp Hgb Conc 33.2 g/dL (32-36); Mean Corpuscular Hgb 30.7 pg (27.0-32.0); Mean Corpuscular Volume 92.7 fL (81-99); Monocyte# 0.76 X10^3/uL; Monocyte% 7.3 % (0-10); NRBC Flagged by Analyzer 0 % (0-5); Neutrophil # 7.37 X10^3/uL (2.7-7.7); Neutrophil % 70.7 % (47-70); Platelet Count 294 K/mm3 (150-450); RBC Distribution Width CV 11.7 % (11.6-14.6); RBC Distribution Width SD 39.8 fl (35.1-43.9); Red Blood Count 3.97 M/mm3 (4.2-5.4); White Blood Count 10.4 K/mm3 (4.4-11.0)
[2020-10-25 15:20] LABS: AST(SGOT) 13 U/L (15-37); Alanine Aminotransfer ALT/SGPT 22 U/L (13-56); Alkaline Phosphatase 78 U/L (45-117); Anion Gap 6 (5-15); BUN 8 mg/dL (7-18); BUN/Creat Ratio 11.6 RATIO (10-20); Calcium,Total 9.1 mg/dL (8.5-10.1); Chloride 105 mmol/L (98-107); Creatinine, Serum 0.69 mg/dL (0.55-1.02); EST Glomerular Filtration Rate 111 mL/min (>60); Est Glom Filt Rate - Afr Amer 135 mL/min (>60); Globulin 3.9 g/dL (2.2-4.2); Glucose 93 mg/dL (74-106); Potassium 3.5 mmol/L (3.5-5.1); Protein, Total 7.9 g/dL (6.4-8.2); Sodium Level 137 mmol/L (136-145)
[2020-10-25 15:37] LABS: Protein, Urine (Random) < 6.0 mg/dL (<11.9)
[2020-10-25 15:59] LABS: HIV - WCH Non-Reactive (Nonreactive); Hepatitis B Surface Antigen Non-Reactive (Nonreactive); Hepatitis C Antibody Non-Reactive (Nonreactive); Rubella IgG Reactive (Nonreactive); Syphilis Antibodies Non-reactive
[2020-10-25 19:15] LABS: Amphetamine Urine VISTA NEGATIVE (<1000 ng/mL); Barbiturate Urine VISTA NEGATIVE (< 200 ng/mL); Benzodiazepine Urine VISTA NEGATIVE (< 200 ng/mL); Cocaine Urine VISTA NEGATIVE (< 300 ng/mL); Ecstacy Urine VISTA NEGATIVE (< 500 ng/mL); Methadone Urine VISTA NEGATIVE (< 300 ng/mL); PCP Urine VISTA NEGATIVE (< 25 ng/mL); THC Urine VISTA NEGATIVE (< 50 ng/mL); Vista UDS pH Range 6
[2020-10-29 03:07] LABS: Chlamydia By Nucleic Acid AMP Negative (Negative)
[2020-10-29 13:06] LABS: Gonococcus By Nucleic Acid AMP Negative (Negative)
== END ==
PROVIDERS: PCP Family Medicine; Referring Provider Obstetrics & Gynecology; Visit Provider Obstetrics & Gynecology
DX: O13.5 Gestational [pregnancy-induced] hypertension without significant proteinuria, complicating the puerperium (principal)
CPT/HCPCS: 36415; 80053; 80307; 82570; 84156; 85025; 86703; 86762; 86780; 86803; 86850; 86900; 86901; 87086; 87340; 87491; 87591

== ENCOUNTER → 2020-11-21 15:43 | Outpatient (CLI) | payer BC, SELFPAY ==
[2020-11-21 16:18] LABS: ALB/GLOB Ratio 0.7 RATIO (0.9-2.4); AST(SGOT) 18 U/L (15-37); Alanine Aminotransfer ALT/SGPT 34 U/L (13-56); Albumin, Serum 3.1 g/dL (3.2-5.0); Alkaline Phosphatase 76 U/L (45-117); Anion Gap 5 (5-15); BUN 9 mg/dL (7-18); BUN/Creat Ratio 12.2 RATIO (10-20); Calcium,Total 8.8 mg/dL (8.5-10.1); Chloride 105 mmol/L (98-107); Creatinine, Serum 0.74 mg/dL (0.55-1.02); EST Glomerular Filtration Rate 103 mL/min (>60); Est Glom Filt Rate - Afr Amer 124 mL/min (>60); Globulin 4.3 g/dL (2.2-4.2); Glucose 88 mg/dL (74-106); Lipase 136 U/L (73-393); Potassium 3.5 mmol/L (3.5-5.1); Protein, Total 7.4 g/dL (6.4-8.2); Sodium Level 137 mmol/L (136-145)
== END ==
PROVIDERS: PCP Family Medicine; Referring Provider Obstetrics & Gynecology; Visit Provider Obstetrics & Gynecology
DX: O26.899 Other specified pregnancy related conditions, unspecified trimester (principal); R10.11 Right upper quadrant pain; Z3A.00 Weeks of gestation of pregnancy not specified
CPT/HCPCS: 36415; 80053; 83690

== ENCOUNTER → 2020-11-26 08:02 | Outpatient (CLI) | payer BC, SELFPAY ==
--- NOTE | 2020-11-26 08:04 | US_ITS ---
STUDY: ABDOMINAL ULTRASOUND - RIGHT UPPER QUADRANT REASON FOR VISIT: Female, 25 years old RUQ . Patient is 15 weeks . TECHNIQUE: Ultrasound evaluation of the right upper quadrant was performed with real-time and static morales-scale imaging. TECHNICAL QUALITY: Adequate. COMPARISON: None. FINDINGS: Liver: The liver measures 15.3 cm. There is normal echogenicity of the liver. The bile ducts are within normal limits. There is hepatic color flow. The direction of portal flow is hepatopetal. There is no demonstrated mass lesion. Gallbladder: Normal distended gallbladder. The gallbladder wall measures 2.0 mm. There is a negative sonographic Mitchell''s sign. There is no pericholecystic fluid. Small amount of sludge or tiny gravel-like stones seen along the dependent portion of the gallbladder lumen. Common Bile Duct (C.B.D.): The common bile duct measures 3 mm. Pancreas: Normal size of the head, body and tail of the pancreas. There is normal echogenicity of the pancreas. There is no demonstrated pancreatic mass or cyst. Right Kidney: Normal size of the right kidney. The right kidney measures 12.2 cm x 4.7 cm x 4.3 cm. Normal renal cortex. The right cortex measures 1.5 cm. There is no demonstrated renal mass or cyst. There is no right hydronephrosis. US/Abdomen Limited IMPRESSION: Small amount of sludge or tiny gravel-like stones seen along the dependent portion of the gallbladder lumen. Electronically Signed: Home Womack MD at 10:01 EDT , Service support ,
== END ==
PROVIDERS: PCP Family Medicine; Referring Provider Obstetrics & Gynecology; Visit Provider Obstetrics & Gynecology
DX: O26.892 Other specified pregnancy related conditions, second trimester (principal); R10.11 Right upper quadrant pain; Z3A.15 15 weeks gestation of pregnancy
CPT/HCPCS: 76705

== ENCOUNTER → 2021-01-01 16:25 | Outpatient (CLI) | payer BC, SELFPAY ==
--- NOTE | 2021-01-01 16:30 | US_ITS ---
STUDY: SECOND AND THIRD TRIMESTER OBSTETRICAL ULTRASOUND REASON FOR EXAM: Female, 25 years old. Anatomy. LMP: Established due date of 05/27/2021. TECHNIQUE: Transabdominal and Transvaginal TECHNICAL QUALITY: Adequate. PRIOR ULTRASOUND: None. FINDINGS: There is a single intrauterine fetus. The fetus is in a cephalic presentation. There is demonstrated cardiac activity with a heart rate of 160 bpm. There is a normal amniotic fluid volume. The largest amniotic fluid pocket measures 3.75 cm. The placenta is anterior in location and is not low lying. There are Grade 0 placental changes. The cervix measures 2.8 cm in length. The adnexal regions are not visualized. BIOMETRY: BPD: 4.29 cm: 18 weeks, 6 days HC: 16.59 cm: 19 weeks, 1 days AC: 13.67 cm: 19 weeks, 0 days FL: 2.92 cm: 18 weeks, 6 days CI: 74.34 FL/BPD: 68.18 FL/HC: 17.63 FL/AC: 21.39 HC/AC: 1.21 age by current US: 19 weeks, 0 days. SORAYA by current US: 05/28/2021. Estimated weight: 272 grams, +/- 41 grams, 4 %. Age by LMP: 19 weeks, 1 days. SORAYA by LMP: 12/27/2021. ANATOMY: Gender: Male Cranium: Normal lateral ventricles. Normal choroid plexus. Normal cerebellum. Normal cisterna magna. Normal face, nose and lips. Chest: Normal 4-chamber heart. Abdomen/Pelvis: Normal diaphragm. Normal stomach. Normal abdominal wall. Normal cord insertion. Normal 3 vessel cord. Normal kidneys. Normal bladder. Spine: Normal cervical spine. The thoracic spine is suboptimally visualized due to position. Normal lumbar spine. Normal sacrum. Extremities: Normal bilateral upper extremities. Normal bilateral lower extremities. IMPRESSION: 1. Live single intrauterine at 19 weeks, 0 days. SORAYA is 11/28/2021. This correlates with the established due date provided. 2. EFW of 272 g. 3. Adequate amniotic fluid. 4. Anterior grade 0 placenta. 5. VERTEX presentation. 6. No visualized anatomic abnormality. The thoracic spine was suboptimally visualized due to position. Electronically Signed: Saúl Phillip DO at 0:01 EDT Tel [phone], Service support , STUDY: SECOND AND THIRD TRIMESTER OBSTETRICAL ULTRASOUND REASON FOR EXAM: Female, 25 years old. Anatomy. LMP: Established due date of 05/27/2021. TECHNIQUE: Transabdominal and Transvaginal TECHNICAL QUALITY: Adequate. PRIOR ULTRASOUND: None. FINDINGS: There is a single intrauterine fetus. The fetus is in a cephalic presentation. There is demonstrated cardiac activity with a heart rate of 160 bpm. There is a normal amniotic fluid volume. The largest amniotic fluid pocket measures 3.75 cm. The placenta is anterior in location and is not low lying. There are Grade 0 placental changes. The cervix measures 2.8 cm in length. The adnexal regions are not visualized. BIOMETRY: BPD: 4.29 cm: 18 weeks, 6 days HC: 16.59 cm: 19 weeks, 1 days AC: 13.67 cm: 19 weeks, 0 days FL: 2.92 cm: 18 weeks, 6 days CI: 74.34 FL/BPD: 68.18 FL/HC: 17.63 FL/AC: 21.39 HC/AC: 1.21 age by current US: 19 weeks, 0 days. SORAYA by current US: 05/28/2021. Estimated weight: 272 grams, +/- 41 grams, 4 %. Age by LMP: 19 weeks, 1 days. SORAYA by LMP: 12/27/2021. ANATOMY: Gender: Male Cranium: Normal lateral ventricles. Normal choroid plexus. Normal cerebellum. Normal cisterna magna. Normal face, nose and lips. Chest: Normal 4-chamber heart. Abdomen/Pelvis: Normal diaphragm. Normal stomach. Normal abdominal wall. Normal cord insertion. Normal 3 vessel cord. Normal kidneys. Normal bladder. Spine: Normal cervical spine. The thoracic spine is suboptimally visualized due to position. Normal lumbar spine. Normal sacrum. Extremities: Normal bilateral upper extremities. Normal bilateral lower extremities. US/OB Anatomy Scan IMPRESSION: 1. Live single intrauterine at 19 weeks, 0 days. SORAYA is 11/28/2021. This correlates with the established due date provided. 2. EFW of 272 g. 3. Adequate amniotic fluid. 4. Anterior grade 0 placenta. 5. VERTEX presentation. 6. No visualized anatomic abnormality. The thoracic spine was suboptimally visualized due to position. Electronically Signed: Saúl Phillip DO at 0:01 EDT Tel [phone], Service support ,
== END ==
PROVIDERS: PCP Family Medicine; Referring Provider Obstetrics & Gynecology; Visit Provider Obstetrics & Gynecology
DX: Z34.80 Encounter for supervision of other normal pregnancy, unspecified trimester (principal); Z3A.19 19 weeks gestation of pregnancy
CPT/HCPCS: 76805; 76817

== ENCOUNTER → 2021-01-14 15:56 | Outpatient (CLI) | payer BC, SELFPAY ==
--- NOTE | 2021-01-14 15:58 | US_ITS ---
STUDY: SECOND AND THIRD TRIMESTER OBSTETRICAL ULTRASOUND - LIMITED REASON FOR EXAM: Female, 25 years old. follow up to anatomy for spinal views PRIOR ULTRASOUND: 01.01.21. TECHNIQUE: Transabdominal TECHNICAL QUALITY: Adequate. FINDINGS: There is a single intrauterine fetus. The fetus is in a cephalic presentation. There is demonstrated cardiac activity with a heart rate of 142 bpm. There is a normal amniotic fluid volume. The largest amniotic fluid pocket measures 9.7 cm. The placenta is posterior in location and is not low lying. There are Grade 0 placental changes. The cervix measures cm in length: 2.9 . Age by LMP: 21 weeks, 0 days. SORAYA by LMP: 3.28.22. ANATOMY: Spine: Normal cervical spine. Normal thoracic spine. Normal lumbar spine. Normal sacrum. US/OB Limited (No Biometrics) IMPRESSION: There is a single live intrauterine with a heart rate of 142 bpm. Age by LMP: 21 weeks, 0 days. SORAYA by LMP: 3.28.22. No visualized anatomic abnormality of the spine. Electronically Signed: Jenaro Leo MD at 17:20 EST , Service support ,
== END ==
PROVIDERS: PCP Family Medicine; Referring Provider Nurse Practitioner Women's Health; Visit Provider Nurse Practitioner Women's Health
DX: Z34.82 Encounter for supervision of other normal pregnancy, second trimester (principal); Z3A.21 21 weeks gestation of pregnancy
CPT/HCPCS: 76815

== ENCOUNTER → 2021-02-20 10:37 | Outpatient (CLI) | payer BC, SELFPAY ==
[2021-02-20 11:08] LABS: Absolute Lymphocyte Count 1.48 X10^3/uL (0.83-4.51); Absolute Neutrophil Count 9.3 X10^3/uL (2.0-7.7); Basophil# 0.03 X10^3/uL; Basophil% 0.3 % (0-1); Eosinophil# 0.07 X10^3/uL; Eosinophils% 0.6 % (0-5); Hematocrit 37.4 % (37-47); Hemoglobin 12.8 g/dL (12.0-15.0); Lymphocyte # 1.48 X10^3/ul (0.83-4.51); Lymphocyte % 12.7 % (19-41); Mean Corp Hgb Conc 34.2 g/dL (32-36); Mean Corpuscular Hgb 31.6 pg (27.0-32.0); Mean Corpuscular Volume 92.3 fL (81-99); Mean Platelet Vol. 9.3 fl (6.2-12.0); Monocyte# 0.64 X10^3/uL; Monocyte% 5.5 % (0-10); NRBC Flagged by Analyzer 0 % (0-5); Neutrophil # 9.33 X10^3/uL (2.7-7.7); Neutrophil % 80.4 % (47-70); Platelet Count 290 K/mm3 (150-450); RBC Distribution Width CV 12.9 % (11.6-14.6); RBC Distribution Width SD 43.8 fl (35.1-43.9); Red Blood Count 4.05 M/mm3 (4.2-5.4); White Blood Count 11.6 K/mm3 (4.4-11.0)
[2021-02-20 11:25] LABS: Glucose Challenge Gest 1H 50g 103 mg/dL (70-140)
== END ==
PROVIDERS: PCP Family Medicine; Referring Provider Obstetrics & Gynecology; Visit Provider Obstetrics & Gynecology
DX: Z34.80 Encounter for supervision of other normal pregnancy, unspecified trimester (principal)
CPT/HCPCS: 36415; 82950; 85025

== ENCOUNTER 2021-04-02 18:26 | Outpatient (CLI) | payer BC, SELFPAY ==
--- NOTE | 2021-04-02 18:31 | US_ITS ---
STUDY: SECOND AND THIRD TRIMESTER OBSTETRICAL ULTRASOUND - LIMITED REASON FOR EXAM: Female, 25 years old. GROWTH PRIOR ULTRASOUND: 11.15.21 TECHNIQUE: Transabdominal TECHNICAL QUALITY: Adequate. FINDINGS: There is a single intrauterine fetus. The fetus is in a cephalic presentation. There is demonstrated cardiac activity with a heart rate of 152 bpm. There is a normal amniotic fluid volume. The largest amniotic fluid pocket measures 5.9 cm. The amniotic fluid index (VANCE) is 13.4 cm. The placenta is posterior in location and is not low lying. There are Grade 1 placental changes. The cervix measures cm in length: 3.5. BIOMETRY: BPD: 82 mm: 32 weeks, 6 days HC: 305 mm: 34 weeks, 0 days AC: 268 mm: 30 weeks, 6 days FL: 64 mm: 32 weeks, 6 days CI: 76.6 FL/AC: 23.7 FL/BPD: 78 HC/AC: 1.14 age by current US: 32 weeks, 6 days. SORAYA by current US: 3.23.22. Estimated weight: 1877 grams, +/- 282 grams, 34 %. Age by LMP: 32 weeks, 1 days. SORAYA by LMP: 3.28.22. . US/OB Limited With Biometrics IMPRESSION: There is a single live intrauterine with a heart rate of 152 bpm. age by current US: 32 weeks, 6 days. SORAYA by current US: 3.23.22. Estimated weight: 1877 grams, +/- 282 grams, 34 %. Electronically Signed: Jenaro Leo MD at 20:13 EST ,
== END 2021-04-02 23:59 | disposition short-term general hospital (02) ==
LOC: US 18:27
PROVIDERS: PCP Family Medicine; Visit Provider Obstetrics & Gynecology
DX: Z34.93 Encounter for supervision of normal pregnancy, unspecified, third trimester (principal)
CPT/HCPCS: 76816

== ENCOUNTER 2021-04-30 16:24 | Outpatient (CLI) | payer BC, SELFPAY ==
--- NOTE | 2021-04-30 16:30 | US_ITS ---
STUDY: SECOND AND THIRD TRIMESTER OBSTETRICAL ULTRASOUND - LIMITED REASON FOR EXAM: Female, 25 years old. growth PRIOR ULTRASOUND: Apr 02 2021 6:37pm TECHNIQUE: Transabdominal TECHNICAL QUALITY: Adequate. FINDINGS: There is a single intrauterine fetus. The fetus is in a cephalic presentation. There is demonstrated cardiac activity with a heart rate of 167 bpm. There is a normal amniotic fluid volume. The largest amniotic fluid pocket measures 6.6 cm. The amniotic fluid index (VANCE) is 10.4 cm. The placenta is posterior in location and is not low lying. There are Grade 2 placental changes. The cervix measures cm in length: 3.4. BIOMETRY: BPD: 87 mm: 35 weeks, 1 days HC: 330 mm: 37 weeks, 4 days AC: 308 mm: 34 weeks, 5 days FL: 69 mm: 35 weeks, 2 days CI: 78 FL/AC: 22 FL/BPD: 79 HC/AC: 1.07 age by current US: 35 weeks, 6 days. SORAYA by current US: 3.30.22. Estimated weight: 2599 grams, +/- 392 grams, 26 %. Age by LMP: 36 weeks, 1 days. SORAYA by LMP: 3.28.22. ANATOMY: Growth only. US/OB Limited With Biometrics IMPRESSION: There is a single live intrauterine with a heart rate of 167 bpm. age by current US: 35 weeks, 6 days. SORAYA by current US: 3.30.22. Estimated weight: 2599 grams, +/- 392 grams, 26 %. Electronically Signed: Jenaro Leo MD at 18:01 EST ,
== END 2021-04-30 23:59 | disposition home or self-care (01) ==
LOC: US 16:28
PROVIDERS: PCP Family Medicine; Referring Provider Obstetrics & Gynecology; Visit Provider Obstetrics & Gynecology
DX: O98.519 Other viral diseases complicating pregnancy, unspecified trimester (principal); U07.1 COVID-19
CPT/HCPCS: 76816

== ENCOUNTER 2021-05-03 09:59 | Outpatient (CLI) | payer BC, SELFPAY | END 2021-05-03 23:59 | disposition home or self-care (01) | LOC: LABSPEC 10:00 | PROVIDERS: PCP Family Medicine; Visit Provider Obstetrics & Gynecology | DX: Z34.83 Encounter for supervision of other normal pregnancy, third trimester (principal); Z3A.36 36 weeks gestation of pregnancy | CPT/HCPCS: 87077; 87081; 87186 ==

== ENCOUNTER 2021-05-13 02:40 | Inpatient (IN) | payer BC, SELFPAY ==
[2021-05-13] VITALS (35 sets, daily range): BP systolic 96–137; BP diastolic 54–98; PULSE 73–112; RESP 16; TEMP 35.9–36.7; O2SAT 98–100; BMI 26.0
[2021-05-13] MEDS: Lactated Ringers 1,000 ML 50 ML IV (02:50)
[2021-05-13] MEDS: Lactated Ringers 500 ML 999 ML IV (03:00)
[2021-05-13 03:07] LABS: Absolute Neutrophil Count 12.1 X10^3/uL (2.0-7.7); Basophil# 0.05 X10^3/uL; Basophil% 0.3 % (0-1); Eosinophil# 0.12 X10^3/uL; Eosinophils% 0.7 % (0-5); Hematocrit 35.6 % (37-47); Hemoglobin 12.6 g/dL (12.0-15.0); Lymphocyte % 14.9 % (19-41); Mean Corp Hgb Conc 35.4 g/dL (32-36); Mean Corpuscular Hgb 31.7 pg (27.0-32.0); Mean Corpuscular Volume 89.7 fL (81-99); Mean Platelet Vol. 10.7 fl (6.2-12.0); Monocyte# 1.34 X10^3/uL; Monocyte% 8.3 % (0-10); NRBC Flagged by Analyzer 0 % (0-5); Neutrophil # 12.09 X10^3/uL (2.7-7.7); Neutrophil % 75.4 % (47-70); Platelet Count 312 K/mm3 (150-450); RBC Distribution Width CV 12.6 % (11.6-14.6); RBC Distribution Width SD 41.1 fl (35.1-43.9); Red Blood Count 3.97 M/mm3 (4.2-5.4); White Blood Count 16.1 K/mm3 (4.4-11.0)
[2021-05-13] MEDS: fentaNYL-bupivacaine (epidural) 100 ML BAG EPIDURAL (03:55)
[2021-05-13] MEDS: Ondansetron 4 MG/2 ML Vial IV (04:22)
[2021-05-13] MEDS: Penicillin G 3,000,000 Units 50 ML 100 UNITS IV (07:27)
--- NOTE | 2021-05-13 07:39 | HP.PCM.OB_ITS ---
HPI - General General Date of Admission: 05/13/21 HPI Narrative BUSHRA SHEARER, is a 25 F who presents IAL with regular ctx 6-7 cm intact no lof good fm Maternal Data Information SORAYA Calculator Estimated Delivery Date Method Current WG Current Estimate 05/27/21 Ultrasound #1 38w 0d Other Estimates 05/06/21 LMP (Uncertain) 41w 0d PFSH [facility] Medical History (Updated 05/13/21 @ 07:[address] Ivett Reid MD) Family history of hearing loss at age younger than 7 years Lab test positive for detection of COVID-19 virus SVT (supraventricular tachycardia) Home Medications multivitamin no.47-iron fum 27 mg-folate no.1 1 mg-dha 300 mg capsule 1 cap PO DAILY 10/10/20 [History Last Taken 05/12/21] Allergy/AdvReac Type Severity Reaction Status Date / Time No Known Allergies Allergy Verified 05/02/21 15:44 Family History Grandfather CVA (cerebral vascular accident) Hypertension Grandmother Diabetes Skin cancer Surgical History (Updated 05/13/21 @ 02:47 by Birgit Medina) Hx of heart surgery Victoria teeth extracted Social History adopted: No household members: family number of children: 1 current occupational status: employed Smoking Status: Never smoker second hand exposure: No alcohol intake: current details: occasionally substance use type: does not use caffeine: No what type of physical activity do you participate in: none seatbelt use: always do you feel safe at home: Yes additional social history: 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 History 2 Elective abortions Hx Para 1 Spontaneous abortions Hx # Term Pregnancies Ectopic pregnancies Hx # Pregnancies Multiple births # of living children 1 Past Pregnancies Del. Date Name GA/Weeks Outcome Route Bth Weight Infant Gen Labor Lgth Anesthesia Del Locatn Provider FOB 03/28/20 Naz 39 live - full term 7lbs 4oz Female epidural [facility] GP Delivery Date: 03/28/20 1st degree laceration and right labial tear; nuchal cord x1 loose Yany Mo Visit Details Expected Delivery Route/Plan Labor Preferences- CB/BF classes: no labor support person: Enzo labor intervention preferences: [] pain management options preferred: epidural cut cord/dad catch: no : no PP control planned: discussed/considering BS discussed possible routes of delivery and associated risks: [] special requests: [] Plans Covid status: + 10/2020 Flu vaccine: given Tdap vaccine: given Rhogam: na LARC form signed: yes movement and labor precautions reviewed. Problem list reviewed and updated with the most current plan of care details and appropriate orders placed. Relevant counseling for the gestational age provided. Continue routine care and follow up unless otherwise noted in visit notes/problem list details OB Flowsheet Initial Weight: Not Recorded Date -?-?-?-?-?-?-?-?-?-?-?-?- EGA Weight BP Urine Prot -?-?-?-?-?-?-?-?-?-?-?-?- Glucose FHR FuHt Pres Dilation -?-?-?-?-?-?-?-?-?-?-?-?- Effaced St Visit Note 10/25/20 -?-?-?-?-?-?-?-?-?-?-?-?- 9w 3d 161 lb 98/66 -?-?-?-?-?-?--?-?-?-?-?-?- 170 -?-?-?-?-?-?-?-?-?-?-?-?- SM- CRL SM- CRL 2.3 cm measuring 9w3 d 11/21/20 -?-?-?-?-?-?-?-?-?-?-?-?- 13w 2d 161 lb 8 oz 130/80 Nega tive -?-?-?-?-?-?-?-?-?-?-?-?- Negative 163 -?-?-?-?-?-?-?-?-?-?-?-?- GP - no cramping or bleeding. Having epigastric pain. CMP, lipase, and RUQ US ordered. Recommend scheduled pepcid. Anatomy scan ordered. 12/17/20 -?-?-?-?-?-?-?-?-?-?-?-?- 17w 0d 159 lb 8 oz 120/80 Nega tive -?-?-?-?-?-?-?-?-?-?-?-?- Negative 159 -?-?-?-?-?-?-?-?-?-?-?-?- -No VB, LOF. anatomy US 01/01. 01/14/21 -?-?-?-?-?-?-?-?-?-?-?-?- 21w 0d 164 lb 8 oz 130/84 Nega tive -?-?-?-?-?-?-?-?-?-?-?-?- Negative 148 -?-?-?-?-?-?-?-?-?-?-?-?- -NO VB, LOF. G ood FM. Has US today to complete views of spine. 02/20/21 -?-?-?-?-?-?-?-?-?-?-?-?- 26w 2d 172 lb 110/80 Negative -?-?-?-?-?-?-?-?-?-?-?-?- Negative 147 25 -?-?-?-?-?-?-?-?-?-?-?-?- JV- pt ate pie b efore her GCT today. if fails will offer to take 1 hr again or choice to do the 3 hr. no lof, vaginal bleeding ,or dec fm. 03/06/21 -?-?-?-?-?-?-?-?-?-?-?-?- 28w 2d 176 lb 126/78 Negative -?-?-?-?-?-?-?-?-?-?-?-?- Negative 149 28 -?-?-?-?-?-?-?-?-?-?-?-?- MH-No VB LOF. Go od FM. Larc. 03/18/21 -?-?-?-?-?-?-?-?-?-?-?-?- 30w 0d 179 lb 102/62 Negative -?-?-?-?-?-?-?-?-?-?-?-?- Negative 145 30 -?-?-?-?-?-?-?-?-?-?-?-?- SM- no vb lof go od fm no reuglar ctx discussed strilization 04/12/21 -?-?-?-?-?-?-?-?-?-?-?-?- 33w 4d 184 lb 102/60 Negative -?-?-?-?-?-?-?-?-?-?-?-?- Negative 135 32 -?-?-?-?-?-?-?-?-?-?-?-?- SM- no vb lof go od fm n oregular ctx 04/18/21 -?-?-?-?-?-?-?-?-?-?-?-?- 34w 3d 183 lb 110/70 -?-?-?-?-?-?-?-?-?-?-?--?- 155 34 -?-?-?-?-?-?-?-?-?-?-?-?- SM- no vb lof go od fm no rgular ctx 05/02/21 -?-?-?-?-?-?-?-?-?-?-?-?- 36w 3d 189 lb 138/87 Negative -?-?-?-?-?-?-?-?-?-?-?-?- Negative 145 35 Cephalic 1 -?-?-?-?-?-?-?-?-?-?-?-?- 50 -2 SM- no vb lof good fm no regular ctx 05/09/21 -?-?-?-?-?-?-?-?-?-?-?-?- 37w 3d 188 lb 122/88 -?-?-?-?-?-?-?-?-?-?-?-?- 135 36 Cephalic 3 -?-?-?-?-?-?-?-?-?-?-?-?- 60 -1 SM- no vb lof good fm n oregular ctx gbs pos 05/13/21 -?-?-?-?-?-?-?-?-?-?-?-?- 38w 0d 187 lb 137/91 127/80 115/74 111/70 109/71 111/77 111/73 106/70 104/68 115/74 99/58 96/54 110/65 104/74 -?-?-?-?-?-?-?-?-?-?-?-?- -?-?-?-?-?-?-?-?-?-?-?-?- NST FHR Rate Baby A Baseline: 140 Variability:: Moderate Accelerations:: 15 x 15 Decelerations:: None NST Reactive:: Yes FHR Category:: Category I Uterine Activity:: q3-5 ROS Constitutional Constitutional: Reports systems reviewed and no addt'l complaints, except as documented ENT HEENT: Reports systems reviewed and no addt'l complaints, except as documented Cardiovascular Cardiovascular: Reports systems reviewed and no addt'l complaints, except as documented Respiratory/Chest Respiratory/Chest: Reports systems reviewed and no addt'l complaints, except as documented Gastrointestinal Gastrointestinal: Reports systems reviewed and no addt'l complaints, except as documented and nausea; Denies abdominal pain Genitourinary Genitourinary: Reports systems reviewed and no addt'l complaints, except as documented, contractions Details: present and frequency (regular ) and movement Details: present Musculoskeletal Musculoskeletal: Reports systems reviewed and no addt'l complaints, except as documented Integumentary Integumentary: Reports as per HPI Neurologic Neurologic: Reports systems reviewed and no addt'l complaints, except as documented Endocrine Endocrinology: Reports systems reviewed and no addt'l complaints, except as documented Vital Signs Vital Signs Vital Signs: 05/13/21 02:25 05/13/21 02:26 05/13/21 03:40 Temperature Temperature Source Pulse Rate 96 91 85 Blood Pressure 137/91 H BP Systolic 137 BP Diastolic 91 Pulse Ox 98 100 05/13/21 03:45 05/13/21 03:50 05/13/21 03:51 Temperature Temperature Source Pulse Rate 97 112 H 93 Blood Pressure 127/80 H BP Systolic 127 BP Diastolic 80 Pulse Ox 98 99 05/13/21 03:55 05/13/21 04:00 05/13/21 04:02 Temperature Temperature Source Pulse Rate 93 99 89 Blood Pressure 115/74 111/70 BP Systolic 115 111 BP Diastolic 74 70 Pulse Ox 98 99 05/13/21 04:05 05/13/21 04:10 05/13/21 04:11 Temperature Temperature Source Pulse Rate 93 97 Blood Pressure 109/71 111/77 BP Systolic 109 111 BP Diastolic 71 77 Pulse Ox 99 100 05/13/21 04:15 05/13/21 04:16 05/13/21 04:20 Temperature Temperature Source Pulse Rate 96 90 105 H Blood Pressure 111/73 106/70 BP Systolic 111 106 BP Diastolic 73 70 Pulse Ox 98 98 05/13/21 04:25 05/13/21 04:45 05/13/21 05:00 Temperature Temperature Source Pulse Rate 97 94 74 Blood Pressure 104/68 115/74 99/58 L BP Systolic 104 115 99 BP Diastolic 68 74 58 Pulse Ox 99 05/13/21 05:14 05/13/21 06:00 05/13/21 06:26 Temperature 98.0 F Temperature Source Temporal Pulse Rate 73 90 Blood Pressure 96/54 L 110/65 BP Systolic 96 110 BP Diastolic 54 65 Pulse Ox 05/13/21 07:19 Temperature 97.0 F L Temperature Source Temporal Pulse Rate 98 Blood Pressure 104/74 BP Systolic 104 BP Diastolic 74 Pulse Ox 98 Weight Weight: 187 lb Body Mass Index (BMI) 26.0 Physical Exam Const alert, oriented x3 and healthy appearing Constitutional Narrative: uncomfortable with contractions HEENT normocephalic and moist oral mucous membranes Head and Scalp: atraumatic Neck full ROM, no lymphadenopathy, supple and thyroid normal General: trachea midline Thyroid: thyroid normal Lymph Lymphatic: no lymphadenopathy noted Chest inspection of chest normal Resp normal respiratory effort Cardio regular rate GI normal to inspection, nondistended, normoactive bowel sounds, soft to palpation and non-tender Inspection: gravid external exam normal Bimanual Exam - Vag & Uterus: uterus non-tender Manual OB Exam: estimated gestational size appropriate, presentation cephalic, dilated, effaced and station Extremity normal to inspection General Extremity: Negative for edema Skin no rashes or lesions noted Neuro deep tendon reflexes 2+ bilaterally Motor Exam: strength 5/5 throughout and clonus absent Psych mental status grossly normal Labs Labs Labs: Blood Type O POSITIVE Antibody Screen NEGATIVE Hct 35.6 % (37-47) L Hgb 12.6 g/dL (12.0-15.0) Obstetrics US Syphilis Total Ab Non-reactive Rubella IgG Antibody Reactive (Nonreactive) Hep Bs Antigen Non-Reactive (Nonreactive) Neisseria gonorrhoeae DNA (LATONYA) Negative (Negative) HIV 1&2 Antibody Non-Reactive (Nonreactive) C.trachomatis DNA (PCR) Negative (Negative) Glucose 1 Hr 50 gm 103 mg/dL (70-140) Rhogam given: No Assessment & Plan (1) Hypertension in , transient, : COMMENT: w/last delivery, baseline labs ordered (2) : QUALIFIERS: Weeks of gestation: 37 weeks Qualified Code(s): Z3A.37 - 37 weeks gestation of COMMENT: anatomy nl, addtnl. spinal views nl, declines carrier, genetic and NTD, GBS+ (3) Supervision of other normal : COMMENT: PRR SORAYA: 05/27/21 boy PC: Latricia Spouse: Enzo (4) Short interval between pregnancies affecting , antepartum: COMMENT: delivered 03/2020 (5) Sterilization: COMMENT: plan PPTL if able (6) Positive GBS test: COMMENT: pcn in labor (7) Lab test positive for detection of COVID-19 virus: COMMENT: ASA 81mg and growth US @ 32, 36w growth u/s WNL pt notified SW (8) Hx of heart surgery: COMMENT: hx SVT (9) Active labor at term: PLAN: epidural exp managment arom clear fluid
[2021-05-13] MEDS: Oxytocin 30 units/NS 500 ml 30 UNITS/500 ML IV.SOLN 334 UNITS IV (08:13)
--- NOTE | 2021-05-13 08:21 | OP.PCM_ITS ---
Assessment & Plan (1) Active labor at term: (2) Vaginal delivery: COMMENT: sm 38 reinaldo schafer (3) Hypertension in , transient, : COMMENT: w/last delivery, baseline labs ordered (4) Supervision of other normal : COMMENT: PRR SORAYA: 05/27/21 reinaldo Schafer PC: Latricia Spouse: Enzo (5) : QUALIFIERS: Weeks of gestation: 37 weeks Qualified Code(s): Z3A.37 - 37 weeks gestation of COMMENT: anatomy nl, addtnl. spinal views nl, declines carrier, genetic and NTD, GBS+ (6) Short interval between pregnancies affecting , antepartum: COMMENT: delivered 03/2020 (7) Sterilization: COMMENT: plan PPTL if able (8) Positive GBS test: COMMENT: pcn in labor (9) Lab test positive for detection of COVID-19 virus: COMMENT: ASA 81mg and growth US @ 32, 36w growth u/s WNL pt notified SW (10) Hx of heart surgery: COMMENT: hx SVT Maternal Data Information SORAYA Calculator Estimated Delivery Date Method Current WG Current Estimate 05/27/21 Ultrasound #1 38w 0d Other Estimates 05/06/21 LMP (Uncertain) 41w 0d Vaginal Delivery Operative Information Date of Procedure: 05/13/21 Pre-Operative Diagnosis: IAL Post-Operative Diagnosis: same Surgery / Procedure Performed: Spontaneous Vaginal Delivery Type of Anesthesia: Epidural Special Medications: none Estimated Blood Loss: 100 Fluids Replaced: crystalloid Findings Description of Procedure: Patient began pushing and delivered the head in the NAEL presentation. The head was delivered atraumatically and a loose nuchal cord ?1 was identified and the infant delivered through without complication. The anterior and posterior shoulders delivered without complication followed by the rest of the infant and the was placed on the maternal abdomen. Delayed cord clamping was employed for approximately 60 seconds. Cord was clamped and cut and gentle traction was applied to the cord and the placenta delivered spontaneously immediately following it was noted to be intact with three-vessel cord. The perineum and vagina were inspected and noted to have no laceration. EBL was 100 cc. Patient and infant tolerated delivery well. Presentation: NAEL Amniotic Membrane Rupture Type: Artificial Amniotic Fluid Description: Clear Placental Delivery Description: Spontaneous Placenta Disposition: [facility] Cord Vessel Description: 3 Vessels Cord Entanglement: Around neck x 1, loose Delayed Cord Clamping: Yes Post Vaginal Delivery Medications Given After Delivery: IV Pitocin Episiotomy Description: None Laceration: None Complication Complications: None Procedures Urinary/Genital [id number]-59xxx: [id number] [facility]inal Delivery [facility]
--- NOTE | 2021-05-13 08:23 | PCM.DC ---
Discharge Instructions Diet Discharge Diet: No restrictions Activity Discharge Activity: Return to Normal Activity, May Not Drive (while taking narcotic pain medications.) and May Shower May resume sexual activity in: 4-6 weeks Dressing / Incision Call your doctor if your incision/area has: Continuous Slow Oozing, Sudden Increased Bleeding, Increased Pain/ Swelling, Increased Redness and Foul Smelling Discharge Follow Up Care Please Follow Up With: Ivett Reid MD When: Call [phone] to make an appointment with your doctor in 6 weeks. If you had elevated blood pressure or 4th degree laceration, you will need to be seen in 2 weeks. Test Results: Test results from this visit will be discussed in further detail at your follow-up appointment, if applicable. Discharge Plan Admission Admit Date/Time: 05/13/21 02:40 Primary Reason for Your Visit: vaginal delivery Attending Provider: Ivett Reid Primary Care Provider: Rossana Myers Discharge Orders/Prescriptions Prescriptions: No Action PNV-DHA 27 mg iron-1 mg -300 mg capsule 1 cap PO DAILY RF: 0 Referrals / Follow Up: Rossana Myers MD [Primary Care Provider] - Disposition Disposition (needs filled in before D/C Order can be placed): Home, Self Care
[2021-05-13] MEDS: 0.9% Saline Lock 10 ML Syringe IV (10:05)
[2021-05-13] MEDS: Naproxen 500 MG Tablet PO (21:54)
[2021-05-14 04:05] VITALS: BP 121/82; PULSE 86; RESP 16; TEMP 36.6
--- NOTE | 2021-05-14 07:18 | PCM.PN.OB ---
Subjective Subjective Patient doing well without complaints. Tolerating PO. Ambulating and voiding without difficulty. feeding well. Denies chest pain, shortness of breath, calf pain/swelling, fevers, chills, lightheadedness. Objective Data Objective Data Vital Signs: Vital Signs Temp Pulse Resp BP Pulse Ox 97.9 F 86 16 121/82 H 98 05/14/21 04:05 05/14/21 04:05 05/14/21 04:05 05/14/21 04:05 05/13/21 07:19 Oxygen Delivery Method Room Air Weight: 187 lb Body Mass Index (BMI) 26.0 Intake & Output: Intake and Output for Last 24 Hours 05/12/21 05/13/21 05/14/21 23:59 23:59 23:59 Intake Total 2155.00 / 2155.00 Output Total 800 / 800 Balance 1355.00 / 1355.00 Lab / Micro Data Result Diagrams: 05/13/21 02:50 Micro: Microbiology 05/13/21 02:55 Nasal Secretion SARS-CoV-2 Antigen (Rapid) - Final ROS Constitutional Constitutional: Reports systems reviewed and no addt'l complaints, except as documented Cardiovascular Cardiovascular: Reports systems reviewed and no addt'l complaints, except as documented Respiratory/Chest Respiratory/Chest: Reports systems reviewed and no addt'l complaints, except as documented Gastrointestinal Gastrointestinal: Reports systems reviewed and no addt'l complaints, except as documented Physical Exam Const alert, oriented x3 and no apparent distress HEENT Head and Scalp: atraumatic Resp normal respiratory effort GI soft to palpation and non-tender Bimanual Exam - Vag & Uterus: uterus non-tender Uterus Palpation: uterus fundus firm (below Umbilicus) Assessment & Plan (1) Vaginal delivery: COMMENT: sm 38 boy deacon PLAN: s/p PPD # 1 1. routine post delivery care 2. breast feeding- support given 3. rh positive 4. rubella immune
[2021-05-14 09:24] VITALS: BP 119/80; PULSE 91; RESP 16; TEMP 36.3
[2021-05-14 14:02] VITALS: BP 120/80; PULSE 87; RESP 14; TEMP 36.3
[2021-05-14 14:09] VITALS: BP 120/80; PULSE 87; RESP 14; TEMP 36.3
--- NOTE | 2021-05-18 17:02 | NURSING ---
no answer on follow up phone call, left voicemail.
== END 2021-05-14 14:20 | disposition home or self-care (01) | DRG 807 ==
LOC: WPOUT 02:43 → WP 02:43
PROVIDERS: Admitting Provider Obstetrics & Gynecology; PCP Family Medicine; Referring Provider Obstetrics & Gynecology; Visit Provider Obstetrics & Gynecology
DX: O99.824 Streptococcus B carrier state complicating childbirth (principal); Z37.0 Single live birth; O69.81X0 Labor and delivery complicated by cord around neck, without compression, not applicable or unspecified; Z30.2 Encounter for sterilization; Z3A.37 37 weeks gestation of pregnancy; Z86.16 Personal history of COVID-19
CPT/HCPCS: 59025; 59050; 85025; 86850; 86900; 86901; 87426; 99218; J7120; A4216; G0378; J2405

== ENCOUNTER 2021-08-27 09:56 | Day surgery (SDC) | payer BC, SELFPAY ==
--- NOTE | 2021-08-20 13:54 | EKG12_ITS ---
Test Reason : PRE OP Blood Pressure : / mmHG Vent. Rate : 080 BPM Atrial Rate : 080 BPM P-R Int : 116 ms QRS Dur : 098 ms QT Int : 394 ms P-R-T Axes : 077 053 059 degrees QTc Int : 454 ms Normal sinus rhythm Normal ECG Confirmed by ELEAZAR VALENTINO, HILLARY ([id number]), newspaper or periodical editor YARITZA RAZO ([id number]) on 08/21/2021 9:36:52 AM Referred By: Roseline Jin Confirmed By:HILLARY BUSH MD
--- NOTE | 2021-08-27 07:01 | PCM.HP.BLA ---
History and Physical Date of Admission: 08/27/21 Date of Service:? 08/20/21 MR#: [id number] Acct: [id number] Name:BUSHRA TRENT Rep #: [id number] : 1995 ? ? Provider: Dr. Roseline Jin, DO Age/Sex:? 26/F ? ? Location: [facility] [place] Status: Signed Intake Vital Signs ? 08/15/2208:09 08/20/2213:14 08/20/2213:15 Height 5 ft 11 in 5 ft 11 in 5 ft 11 in Weight: ? 166 lb ? BMI ? 23.1 ? BP ? 120/80 ? Intake Visit Reasons:?BS/IUD out Demographer Required: No Is patient in pain?: No Allergies No Known Allergies Allergy (Verified 08/20/21 14:17) Medications levonorgestrel 20 mcg/24 hours (7 yrs) 52 mg intrauterine device (Mirena) 1 device intrauterine ONCE 08/05/21 [History Confirmed 08/20/21] Post menopausal: No Patient : No : No PFSH Medical History? Asthma Cardiology follow-up encounter Family history of hearing loss at age younger than 7 years History of echocardiogram Lab test positive for detection of COVID-19 virus Non-smoker SVT (supraventricular tachycardia) Wears glasses Surgical History? Hx of heart surgery [place] teeth extracted Family History? Grandfather CVA (cerebral vascular accident) HypertensionGrandmother Diabetes Skin cancer Social History? adopted:? No household members:? family number of children:? 1 current occupational status:? employed Smoking Status:? Never smoker second hand exposure:? No alcohol intake:? current details:? occasionally substance use type:? does not use caffeine:? No what type of physical activity do you participate in:? none seatbelt use:? always do you feel safe at home:? Yes additional social history:? 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 who presents for pre-operative exam for laparoscopic bilateral salpingectomy, removal of IUD. The patient states that she has been bleeding for 8 weeks and wants the IUD out. She knows for sure that she does not want any more children. Pregancy History ? ? ? 2 ? Elective abortions ? Hx Para ? ? ? 2 ? Spontaneous abortions ? Hx # Term Pregnancies ? Ectopic pregnancies ? Hx # Pregnancies ? Multiple births ? # of living children ? ? ? 2 Past Pregnancies Del. Date Name GA/Weeks Outcome Route Bth Weight Gen Labor Lgth Anesthesia Del Locatn Provider FOB 03/28/20 Naz 39 live - full term 7lbs 4oz Female ? epidural [facility] GP ? 05/13/21 [facility] 38 live - full term ? Male ? ? [facility] Marcanthony ? Delivery Date: 03/28/20? Last Updated by: Yany Mo ? ? ? 1st degree laceration and right labial tear; nuchal cord x1 loose Delivery Date: 05/13/21? Last Updated by: Miriam Carver ? ? ? IOL ROS Const ROS Unobtainable: All systems reviewed & are unremarkable except as noted in H Resp Resp: Reports system reviewed and no additional complaints, except as documented; Denies cough GI GI: Reports as per HPI Psych Psych: Reports system reviewed and no additional complaints, except as documented Exam Const General: cooperative, healthy appearing, comfortable and no acute distress Resp Effort & Inspection: normal respiratory effort Skin General: no rashes or lesions noted Psych Appearance: grossly normal Speech and Movement: speech and movement normal Coding Level of Care Code Off vis,est,level 4 Diagnoses Sterilization consult? Z30.09 Assessment and Plan Assessment and Plan (1) Sterilization consult: ?Status:?Acute ?Plan: After discussing the patient's diagnosis and treatment plan options, patient wishes to proceed with surgical management.? I have discussed with the patient the risks, benefits, and alternatives of the procedure which include but are not limited to risks of anesthesia, bleeding, infection, possible damage to bowel, bladder, or surrounding vasculature which could lead to additional surgery to evaluate any complications.? Patient agrees to procedure and wishes to proceed.? ACOG/uptodate references given for additional information regarding procedure.? plan for laparoscopic bilateral salpingectomy with removal of IUD next thursday. UPDATE- I have seen the patient and performed any clinically relevant updates to the history and physical exam. Roseline Jin, DO
[2021-08-27] MEDS: Lactated Ringers 1,000 ML 125 ML IV (10:10)
[2021-08-27 10:16] VITALS: BP 124/83; PULSE 65; RESP 15; TEMP 35.9; O2SAT 100; BMI 22.8
[2021-08-27 10:22] LABS: Internal QC Validated? YES +Cl - CLEAR BKGD; Pregnancy, Urine Negative Negative
[2021-08-27 10:27] LABS: Absolute Lymphocyte Count 2.63 X10^3/uL (0.83-4.51); Basophil# 0.05 X10^3/uL; Basophil% 0.8 % (0-1); Eosinophil# 0.08 X10^3/uL; Eosinophils% 1.3 % (0-5); Hemoglobin 13.2 g/dL (12.0-15.0); Lymphocyte # 2.63 X10^3/ul (0.83-4.51); Lymphocyte % 41.7 % (19-41); Mean Corpuscular Hgb 30.4 pg (27.0-32.0); Mean Corpuscular Volume 92.2 fL (81-99); Mean Platelet Vol. 9.8 fl (6.2-12.0); Monocyte# 0.56 X10^3/uL; Monocyte% 8.9 % (0-10); NRBC Flagged by Analyzer 0 % (0-5); Neutrophil # 2.97 X10^3/uL (2.7-7.7); Platelet Count 331 K/mm3 (150-450); RBC Distribution Width CV 12.1 % (11.6-14.6); Red Blood Count 4.34 M/mm3 (4.2-5.4); White Blood Count 6.3 K/mm3 (4.4-11.0)
[2021-08-27 10:40] LABS: Anion Gap 7 (5-15); BUN 14 mg/dL (7-18); BUN/Creat Ratio 13.7 RATIO (10-20); Chloride 106 mmol/L (98-107); Creatinine, Serum 1.02 mg/dL (0.55-1.02); EST Glomerular Filtration Rate 70 mL/min (>60); Est Glom Filt Rate - Afr Amer 85 mL/min (>60); Estimated Creatinine Clearance 94.24 ml/min; Glucose 84 mg/dL (74-106); Potassium 3.6 mmol/L (3.5-5.1); Sodium Level 141 mmol/L (136-145)
--- NOTE | 2021-08-27 10:59 | DCINST_ITS ---
Discharge Instructions Diet Discharge Diet: No restrictions Activity Discharge Activity: Return to Normal Activity, May Not Drive (for two weeks or while taking narcotic pain medications.), May Shower and May Take a Tub Bath (in 7 days) May resume sexual activity in: 1 week Weight Bearing Status: Full weight bearing Dressing / Incision Call your doctor if you observe: Using more than 1 pad per hour, Shortness of breath, Chest pain and Uncontrolled pain Suture Line Care: Avoid Pulling/Pushing and Avoid Pinching/Bending Remove Dressing in: 1 week (if present) Cleanse incision/area with: Soap & Water and Keep Dressing Clean & Dry Follow Up Care Please Follow Up With: Roseline Jin DO When: Call to make an appointment with your doctor for a follow up incision check in 1-2 weeks. Test Results: Test results from this visit will be discussed in further detail at your follow- up appointment, if applicable. Discharge Plan Admission Primary Reason for Your Visit: laparoscopic bilateral sapingectomy, removal of intrauterine device Attending Provider: Roseline Jin Primary Care Provider: Rossana Myers Discharge Orders/Prescriptions Prescriptions: New ibuprofen 600 mg tablet 600 mg PO Q6H PRN (Reason: pain) 7 Days Qty: 28 0RF Rx Instructions: one tab every 6 hrs as needed for mild to moderate pain oxycodone-acetaminophen [Percocet] 5-325 mg tablet 1 tab PO Q6H PRN (Reason: pain) 3 Days Qty: 10 0RF Discontinued Mirena 20 mcg/24 hours (7 yrs) 52 mg intrauterine device 1 device intrauterine ONCE Rx Instructions: as a single dose Other Ambulatory Orders: Basic Metabolic Profile (BMP) (Routine) Timeframe: 20210820 Facility: [facility] - Location: Laboratory Ordered By: Dr. Darin Green CBC-Complete Blood Cnt No Diff (Routine) Timeframe: 20210820 Facility: [facility] - Location: Laboratory Ordered By: Dr. Roseline Jin Referrals / Follow Up: Rossana Myers MD [Primary Care Provider] - Disposition Disposition (needs filled in before D/C Order can be placed): Home, Self Care
--- NOTE | 2021-08-27 11:25 | FALS_PTH ---
PATIENT: BUSHRA SHEARER [place] [facility] [id number] AGE/SX: 26/F ROOM: RE08/27/[address]: Dr. Roseline Jin DO : 1995 BED: DIS: 08/27/2021 SPEC #: [id number] RECD: 08/27/21 12:23 STATUS: SHANIQUE MAEDov #: [id number] COOKIE: 08/27/21 11:[address]: Roseline Jin DEPT: SURGICAL PATHOLOGY RECD BY: Madeline Ross ENTERED: 08/27/21 13:14 SP TYPE: FALL TUBES OTHR DR: Dr. Rossana Myers MD Tissues: Fallopian tube Procedures: Surgery Specimen Level II Surgery Specimen Level IV HEADER OPERATION: Laparoscopic salpingectomy, IUD removal PRE-OP DIAGNOSIS: Sterilization TISSUE SUBMITTED: Bilateral fallopian tubes MICROSCOPIC DIAGNOSIS Right and left fallopian tubes, bilateral salpingectomies: Complete cross-sections of fallopian tubes. Benign paratubal cyst. AM:marybeth 08/28/2021 MICROSCOPIC DESCRIPTION Slides are reviewed. GROSS DESCRIPTION Received in fixative is one container labeled with the patient's name and designated bilateral fallopian tubes. The specimen consists of bilateral fallopian tubes including fimbrial ends measuring 5 cm in length and up to 0.6 cm in diameter and 6 cm in length and 0.6 cm in diameter. The fallopian tubes are not identified as right or left. A paratubal cyst is noted in one fallopian tube measuring 1.3 cm in greatest dimension. Sections reveal unremarkable cut surfaces. Screen Printer sections are submitted in two cassettes as follows: 1 ? one fallopian tube and paratubal cyst, 2 ? second fallopian tube. / SJ:marybeth 08/27/2021 TC:5 CPT: 88047, 06858
[2021-08-27] MEDS: Bupivacaine Mpf 0.5% 30 ML VIAL (11:45)
[2021-08-27 12:02] VITALS: BP 110/94; BP 124/83; PULSE 79; RESP 16; TEMP 36.3; O2SAT 99
--- NOTE | 2021-08-27 12:06 | OP.PCM_ITS ---
Problems Associated Problem List Diagnoses (1) Admission for sterilization: Operative Report Date of Procedure: 08/27/21 preoperative diagnosis: desires permanent sterilization and removal of IUD Postoperative diagnosis: Desires permanent sterilization and removal of IUD Procedure: Laparoscopic bilateral salpingectomy Surgeon: Dr. Roseline Jin DO Customer Support Specialist: IRENE Nuñez Estimated blood loss: 5 cc Urine output: 100 cc Fluids: 1300 cc Details of the procedure: Patient was brought to the operating room where general anesthesia was found to be adequate. She was prepped and draped in the normal sterile fashion her legs were placed in stirrups a weighted speculum was placed in the vagina. The anterior lip of the cervix was grasped with a single-tooth tenaculum. The IUD was grasped and removed without difficulty. The uterus was sounded to 12 cm. A uterine manipulator was inserted without difficulty. The speculum was removed and gloves were changed. Attention was turned towards the abdomen. 0.75% Marcaine was injected into the umbilicus and a 5 mm incision was made with an 11 blade scalpel. A 5 mm trocar was inserted into the abdomen under direct visualization using the 5 mm laparoscope. A left lower quadrant 5 mm incision was also made followed by insertion of a 5 mm trocar. Approximately 5 cm above the pubic symphysis in the midline after Marcaine injection a mini grasper and was inserted into the abdomen under direct visualization. The uterus was elevated and manipulated to the right side the left fallopian tube was first grasped with a mini grasper and the underlying mesosalpinx was cauterized and cut to the level of the cornua using the LigaSure device. The fallopian tube was removed through the trocar. The same procedure was performed on the right side. both fallopian tubes were passed off for pathology analysis. Excellent hemostasis was noted at all operative sites. All instruments were removed from the abdomen and CO2 gas was escape from the abdomen. The skin was closed with a 4-0 Monocryl subcuticular stitch and sealed with surgical glue. The vaginal manipulator was removed and a vaginal sweep was performed no foreign objects were left in the vagina. The patient tolerated the procedure well sponge lap needle counts were correct x2 and she is now being brought to the recovery room in stable condition Complications: None Multi Select Codes Urinary/Genital Urinary/Genital CPT Codes: 80462 Laproscopic BS/O
[2021-08-27 12:15] VITALS: BP 124/83; BP 131/96; PULSE 67; RESP 16; O2SAT 100
[2021-08-27 12:30] VITALS: BP 117/96; BP 124/83; PULSE 65; RESP 16; O2SAT 100
[2021-08-27 12:48] VITALS: BP 124/83; BP 131/93; PULSE 61; RESP 18; TEMP 36.4; O2SAT 100
[2021-08-27] MEDS: HYDROcodone Bitartrate/Apap 5/325 Tablet PO (13:09)
[2021-08-27 14:00] VITALS: BP 124/83; BP 125/71; PULSE 71; RESP 18; TEMP 36.4; O2SAT 100
== END 2021-08-27 14:06 | disposition home or self-care (01) ==
LOC: SDC 09:57 → AC 09:58
PROVIDERS: PCP Family Medicine; Referring Provider Obstetrics & Gynecology; Visit Provider Obstetrics & Gynecology
PROC: (CPT 58661; principal; 2021-08-27 11:10)
DX: Z30.2 Encounter for sterilization (principal); Z30.432 Encounter for removal of intrauterine contraceptive device; N83.8 Other noninflammatory disorders of ovary, fallopian tube and broad ligament; J45.909 Unspecified asthma, uncomplicated
CPT/HCPCS: 58661; 58301; 80048; 81025; 85025; 88302; 88305; 93005; J7120; J2405